=== PATIENT | male | born 1970 | race Hispanic/Latino ===

== ENCOUNTER 2016-11-10 16:01 | Emergency (ER) | payer OTHER ==
--- NOTE | 2016-11-10 16:29 | ED PDOC ---
HPI: Neurologic - General Time Seen by Provider: 11/10/16 16:21 Chief Complaint (Nursing): Weakness/Neurological Deficit Chief Complaint (Provider): Left sided facial weakness & droop Source: patient Exam Limitations: no limitations - History of Present Illness Allergies/Adverse Reactions: Allergies No Known Allergies Allergy (Verified 11/10/16 16:21) Home Medications: Ambulatory Orders Acyclovir 400 mg PO 5XD #34 tablet 11/10/16 Mineral Oil/White Petrolatum [Lacri-Lube] 3.5 gm OS HS #1 tube 11/10/16 Prednisone [Deltasone] 40 mg PO BID #26 tablet 11/10/16 Additional Complaint(s): Cam Peterson is a 46 y/o female presenting to the ER on 11/10/2016 with complaints of left sided facial weakness associated with a facial droop that started today. Patient notes his symptoms include being unable to fully close his left eye. He additionally reports pain localized to the back of his head on the left side that radiates to the area behind his left ear, which originated two days ago. He states the pain has improved but is still present, prompting him to seek medical evaluation. He also states an altered sensation in his taste. Past Medical History Reviewed: Historical Data, Nursing Documentation, Vital Signs - Medical History PMH: HTN - Surgical History Surgical History: No Surg Hx - Family History Family History: States: Unknown Family Hx - Social History Current smoker - smoking cessation education provided: No Alcohol: None Drugs: Denies - Home Medications Home Medications: Ambulatory Orders Medication Instructions Recorded Acyclovir 400 mg PO 5XD #34 tablet 11/10/16 Mineral Oil/White Petrolatum 3.5 gm OS HS #1 tube 11/10/16 [Lacri-Lube] Prednisone [Deltasone] 40 mg PO BID #26 tablet 11/10/16 - Allergies Allergies/Adverse Reactions: Allergies Allergy/AdvReac Type Severity Reaction Status Date / Time No Known Allergies Allergy Verified 11/10/16 16:21 Review of Systems ROS Statement: Except As Marked, All Systems Reviewed And Found Negative Neurological: Positive for: Weakness ((+) left side ), Headache, Other ((+) altered sensation in taste ; (+) facial droop ) Physical Exam - Reviewed Nursing Documentation Reviewed: Yes Vital Signs Reviewed: Yes - Physical Exam Appears: Positive for: Non-toxic, No Acute Distress Head Exam: Positive for: ATRAUMATIC, NORMOCEPHALIC Skin: Negative for: Rash Eye Exam: Positive for: Normal appearance, EOMI, PERRL ENT: Positive for: TM Is/Are (unable to visualize TMs bilat, but ear canals are normal otherwise ). Negative for: Pharyngeal Erythema, Tonsillar Exudate, Tonsillar Swelling Neck: Positive for: Normal, Painless ROM, Supple Cardiovascular/Chest: Positive for: Regular Rate, Rhythm. Negative for: Murmur Respiratory: Positive for: Normal Breath Sounds. Negative for: Wheezing, Respiratory Distress Extremity: Negative for: Swelling Neurologic/Psych: Positive for: Alert, operations and intelligence assistant II-XII (intact except as stated), Oriented, Motor/Sensory Deficits (pt reports subjectively decreased sensation to the left side of his face, otherwise negative ), Gait (steady ), Facial Droop (left sided facial droop that involves his forehead. Pt is also unable to close his left eye fully ), Other (no pronator drift ) Medical Decision Making Medical Decision Making: presentation and exam consistent with Panchal Palsy. paralysis involves forehead as well and classic sx of pain around mastoid and altered taste present as well. no vesicles in or around the otic canal. I disc w the pt my impression, plan for rx including importance of wearing eye patch at night, follow up and rtr. Documented by Penny Rodriguez, acting as a scribe for Nahid Bueno MD. All medical record entries made by the Scribe were at my direction and personally dictated by me. I have reviewed the chart and agree that the record accurately reflects my personal performance of the history, physical exam, medical decision making, and the department course for this patient. I have also personally directed, reviewed, and agree with the discharge instructions and disposition. Disposition - Clinical Impression Clinical Impression: Panchal palsy - Disposition Disposition: Routine/Home Disposition Time: 16:41 Condition: GOOD Additional Instructions: Please follow up with your doctor this week. Use lacri-lube throughout the day as needed to keep the eye moist. Use it every night before sleep and apply an eye patch to avoid scratching your cornea while you sleep. Return to the ER for any worsening symptoms or for any other concerns. Prescriptions: Acyclovir 400 mg PO 5XD #34 tablet Mineral Oil/White Petrolatum [Lacri-Lube] 3.5 gm OS HS #1 tube Prednisone [Deltasone] 40 mg PO BID #26 tablet Instructions: Panchal Palsy (ED)
[2016-11-10 16:57] VITALS: PULSE 77; RESP 18; TEMP 98; O2SAT 96
[2016-11-10 17:04] VITALS: BP 135/89
== END 2016-11-10 17:05 | disposition home or self-care (01) ==
LOC: H.ER 16:01
DX: G51.0 Bell's palsy (principal); I10 Essential (primary) hypertension

== ENCOUNTER 2016-11-23 09:44 | Emergency (ER) | payer OTHER ==
[2016-11-23 09:47] VITALS: BMI 39.9
[2016-11-23 09:48] VITALS: BP 155/94; PULSE 70; RESP 16; TEMP 98.9; O2SAT 98
[2016-11-23] MEDS ORDERED: Sodium Chloride 0.9% 1,000 ML IV STA ×3 (10:27→13:44)
--- NOTE | 2016-11-23 10:33 | ED PDOC ---
HPI: Headache Time Seen by Provider: 11/23/16 10:12 Chief Complaint (Nursing): Headache Chief Complaint (Provider): headache, dizziness History Per: Patient Additional Complaint(s): 46-year-old male with recent diagnosis of Panchal's palsy presents to emergency department with left-sided headache and dizziness 3 days. Patient states he was diagnosed 2 weeks ago with Panchal's palsy and was started on course of prednisone and valacyclovir. He completed course of medication and initially symptoms did improve but as of 3 days ago he has had persistent left-sided headache and dizziness. Patient has been taking Tylenol which has not helped the pain. Patient also took oxycodone tab and vicoprofen given to him from his mother but these meds did not help either. Patient also complains of associated left-sided neck pain. He denies injury or trauma. At present he rates headache as a 9 out of 10. Patient states this is not the worst headache of his life. Patient still has residual paralysis on right side of face from recent diagnosis of Panchal's palsy. Patient was seen this past Friday by Dr. Sung, neurologist who ordered outpatient MRI of the brain as well as labs but patient has not had these tests done as of yet. Past Medical History Reviewed: Historical Data, Nursing Documentation, Vital Signs Vital Signs: Last Vital Signs Temp 98.9 F 11/23/16 09:47 Pulse 70 11/23/16 09:47 Resp 16 11/23/16 09:47 BP 155/94 H 11/23/16 09:47 Pulse Ox 98 11/23/16 09:47 - Medical History PMH: HTN - Surgical History Surgical History: No Surg Hx - Family History Family History: States: No Known Family Hx - Living Arrangements Living Arrangements: With Family - Social History Current smoker - smoking cessation education provided: No Alcohol: None Drugs: Denies - Home Medications Home Medications: Ambulatory Orders Medication Instructions Recorded Acyclovir 400 mg PO 5XD #34 tablet 11/10/16 Mineral Oil/White Petrolatum 3.5 gm OS HS #1 tube 11/10/16 [Lacri-Lube] Prednisone [Deltasone] 40 mg PO BID #26 tablet 11/10/16 Cyclobenzaprine [Cyclobenzaprine 10 mg PO TID PRN #15 tab 11/23/16 HCl] Naproxen [Naprosyn] 500 mg PO BID #15 tab 11/23/16 Ondansetron [Zofran Odt] 4 mg PO ASDIR PRN #10 odt 11/23/16 oxyCODONE/Acetaminophen [Percocet 1 ea PO Q6H PRN #6 tab 11/23/16 5/325 mg Tab] - Allergies Allergies/Adverse Reactions: Allergies Allergy/AdvReac Type Severity Reaction Status Date / Time No Known Allergies Allergy Verified 11/23/16 09:55 Review of Systems ROS Statement: Except As Marked, All Systems Reviewed And Found Negative Constitutional: Negative for: Fever, Chills Cardiovascular: Negative for: Chest Pain, Palpitations Respiratory: Negative for: Cough Gastrointestinal: Positive for: Nausea. Negative for: Vomiting Musculoskeletal: Positive for: Neck Pain Neurological: Positive for: Headache, Dizziness. Negative for: Weakness Physical Exam - Reviewed Nursing Documentation Reviewed: Yes Vital Signs Reviewed: Yes - Physical Exam Appears: Positive for: Well, Non-toxic, No Acute Distress Head Exam: Positive for: ATRAUMATIC, NORMAL INSPECTION Skin: Positive for: Rash Cardiovascular/Chest: Positive for: Regular Rate, Rhythm Respiratory: Positive for: Normal Breath Sounds. Negative for: Wheezing, Respiratory Distress Back: Negative for: Vertebral Tenderness Extremity: Positive for: Normal ROM. Negative for: Pedal Edema Neurologic/Psych: Positive for: Alert, Oriented, Facial Droop (right sided, recently diagnosed with bells palsy) - Laboratory Results Result Diagrams: 11/23/16 10:48 11/23/16 12:00 - ECG Interpretation Of ECG: NSR 64 bpm, no acute finding. Reviewed by PA and ED attending. O2 Sat by Pulse Oximetry: 98 Pulse Ox Interpretation: Normal - Other Rad CT head X-Ray: Read By Radiologist X-Ray Interpretation: no acute finding Medical Decision Making Medical Decision Makin46 year old with headache and dizziness. Plan: Patient presents with rx for labs from neurologist, labs were ordered as per list. CT head IVF IV zofran PO tramadol K is hemolyzed, 5.7. Repeat was ordered. Headache not relieved by tramadol, 4 mg IV morphine ordered. Repeat K is normal at 4.8 Patient states headache is better after morphine but is still 6/10. He states he feels the pain more so in his neck, additional 4 mg IV morphine given along with 30 mg IV toradol and 10 mg PO flexeril. Patient states pain is better after these meds were given. I spoke with patient's neurologist, Dr. Sung, who is aware of diagnostic testing results. He states to have patient schedule outpatient MRI and follow up this week in his office. Patient was discharged with rx percocet, naprosyn and flexeril. He was advised to take meds as directed as needed for pain and to follow up next week with Dr. Sung. Patient is aware he can RTED at any time if acutely worse. Disposition - Clinical Impression Clinical Impression: Headache, Neck pain - Patient ED Disposition Is Patient to be Admitted: No Counseled Patient/Family Regarding: Studies Performed, Diagnosis, Need For Followup, Rx Given - Disposition Referrals: Peewee Sung MD [Medical Doctor] - Disposition: Routine/Home Disposition Time: 13:52 Condition: STABLE Additional Instructions: Take rx meds as directed. Follow up this coming week with Dr. Sung. Return any time if acutely worse. Prescriptions: Cyclobenzaprine [Cyclobenzaprine HCl] 10 mg PO TID PRN #15 tab PRN Reason: Muscle Pain Naproxen [Naprosyn] 500 mg PO BID #15 tab Ondansetron [Zofran Odt] 4 mg PO ASDIR PRN #10 odt PRN Reason: Nausea/Vomiting oxyCODONE/Acetaminophen [Percocet 5/325 mg Tab] 1 ea PO Q6H PRN #6 tab PRN Reason: Pain, Severe (8-10) Instructions: Cervical Sprain (ED), General Headache (ED) Results - Lab Results Lab Results: 11/23/16 11/23/16 11/23/16 12:00 10:48 10:48 WBC 7.7 RBC 5.38 Hgb 15.0 Hct 45.1 MCV 83.8 MCH 27.8 MCHC 33.2 RDW 13.5 Plt Count 238 MPV 7.4 Neut % (Auto) 50.5 Lymph % (Auto) 35.4 Catron % (Auto) 11.8 H Eos % (Auto) 1.8 Baso % (Auto) 0.5 Neut # 3.9 Lymph # 2.7 Catron # 0.9 H Eos # 0.1 Baso # 0.0 ESR 3 Sodium 135 Potassium 4.8 5.7 H Chloride 104 Carbon Dioxide 22 Anion Gap 15 BUN 16 Creatinine 0.9 Est GFR ( Amer) > 60 Est GFR (Non-Af Amer) > 60 Random Glucose 109 Calcium 8.4 Total Bilirubin 1.2 AST 63 H ALT 37 Alkaline Phosphatase 89 Total Protein 7.0 Albumin 4.0 Globulin 3.1 Albumin/Globulin Ratio 1.3 Vitamin B12 843
[2016-11-23 11:08] LABS: BASO % 0.5 % (0.0-2.0); EOS # 0.1 K/uL (0.0-0.7); EOS % 1.8 % (0.0-4.0); LYMPH # 2.7 K/uL (1.0-4.3); LYMPH % 35.4 % (20.0-40.0); MEAN CELL VOLUME 83.8 fl (80.0-94.0); MEAN CORPUSCULAR HEMOGLOBIN 27.8 pg (27.0-31.0); MEAN CORPUSCULAR HGB CONC 33.2 g/dL (33.0-37.0); MEAN PLATELET VOLUME 7.4 fl (7.2-11.7); MONO # 0.9 K/uL (0.0-0.8); MONO % 11.8 % (0.0-10.0); NEUT # 3.9 K/uL (1.8-7.0); NEUT % 50.5 % (50.0-75.0); NRBC % 0.1 % (0.0-0.0); RBC 5.38 Mil/uL (4.40-5.90); RED CELL DISTRIBUTION WIDTH 13.5 % (11.5-14.5); WHITE BLOOD COUNT 7.7 K/uL (4.8-10.8)
[2016-11-23 11:33] LABS: ALB/GLOB RATIO 1.3 (1.0-2.1); ALT/SGPT 37 U/L (21-72); AST/SGOT 63 U/L (17-59); BLOOD UREA NITROGEN 16 mg/dl (9-20); CALCIUM 8.4 mg/dL (8.4-10.2); GFR AFRICAN-AMERICAN > 60; GFR NON-AFRICAN AMERICAN > 60
[2016-11-23] MEDS: Morphine 4 MG/ML VIAL IVP STA ×2 (12:10→13:27)
--- NOTE | 2016-11-23 12:27 | CT ---
PROCEDURE: CT HEAD WITHOUT CONTRAST. HISTORY: headache and dizziness for 3 days COMPARISON: None available. TECHNIQUE: Axial computed tomography images were obtained through the head/brain without intravenous contrast. Radiation dose: Total exam DLP = 123.62 mGy-cm. This CT exam was performed using one or more of the following dose reduction techniques: Automated exposure control, adjustment of the mA and/or kV according to patient size, and/or use of iterative reconstruction technique. FINDINGS: HEMORRHAGE: No intracranial hemorrhage. BRAIN: No mass effect or edema. No atrophy or chronic microvascular ischemic changes. VENTRICLES: Unremarkable. No hydrocephalus. CALVARIUM: Unremarkable. PARANASAL SINUSES: Frontal sinuses are hypoplastic. Remaining visualized paranasal sinuses well-developed and currently well-aerated. InUnremarkable as visualized. No significant inflammatory changes. MASTOID AIR CELLS: Unremarkable as visualized. No inflammatory changes. OTHER FINDINGS: None. IMPRESSION: No acute intracranial hemorrhage.
--- NOTE | 2016-11-24 10:46 | CARD ---
APPROVED REPORT EKG Measurement Heart [id number] <Conclusion> Normal sinus rhythm Normal ECG
[2016-11-26 13:06] LABS: 23 KD (IGG) BAND Nonreactive
== END 2016-11-23 15:00 | disposition home or self-care (01) ==
LOC: H.ER 09:44
DX: R51 Headache (principal); I10 Essential (primary) hypertension; M54.2 Cervicalgia

== ENCOUNTER 2017-06-06 18:41 | Emergency (ER) | payer OTHER ==
[2017-06-06 18:41] VITALS: BMI 39.9
[2017-06-06 18:50] VITALS: BP 150/94; PULSE 90; RESP 16; TEMP 98.3; O2SAT 100
--- NOTE | 2017-06-06 20:18 | ED PDOC ---
HPI: Back Time Seen by Provider: 06/06/17 18:52 Chief Complaint (Nursing): Back Pain Chief Complaint (Provider): Back Pain History Per: Patient History/Exam Limitations: no limitations Onset/Duration Of Symptoms: Days Additional Complaint(s): 46 year old male presents to the emergency department with a complaint of a lower back pain that worsens with movement especially when he tries to sit up after laying down. Denies trauma, urinary symptoms, bladder or bowel incontinence, fever, paresthesias, to weakness. PMD: Dr. David Teixeira MD Past Medical History Reviewed: Historical Data, Nursing Documentation, Vital Signs Vital Signs: Last Vital Signs Temp 98.3 F 06/06/17 18:48 Pulse 90 06/06/17 18:48 Resp 16 06/06/17 18:48 BP 150/94 H 06/06/17 18:48 Pulse Ox 100 06/06/17 18:48 - Medical History PMH: HTN - Family History Family History: States: Unknown Family Hx - Home Medications Home Medications: Ambulatory Orders Medication Instructions Recorded Acyclovir 400 mg PO 5XD #34 tablet 11/10/16 Mineral Oil/White Petrolatum 3.5 gm OS HS #1 tube 11/10/16 [Lacri-Lube] Prednisone [Deltasone] 40 mg PO BID #26 tablet 11/10/16 Cyclobenzaprine [Cyclobenzaprine 10 mg PO TID PRN #15 tab 11/23/16 HCl] Naproxen [Naprosyn] 500 mg PO BID #15 tab 11/23/16 Ondansetron [Zofran Odt] 4 mg PO ASDIR PRN #10 odt 11/23/16 oxyCODONE/Acetaminophen [Percocet 1 ea PO Q6H PRN #6 tab 11/23/16 5/325 mg Tab] Cyclobenzaprine [Cyclobenzaprine 10 mg PO TID PRN #15 tab 06/06/17 HCl] Meloxicam [Mobic] 15 mg PO DAILY #30 tab 06/06/17 - Allergies Allergies/Adverse Reactions: Allergies Allergy/AdvReac Type Severity Reaction Status Date / Time No Known Allergies Allergy Verified 11/23/16 09:55 Review of Systems ROS Statement: Except As Marked, All Systems Reviewed And Found Negative (As per HPI, otherwise negative) Constitutional: Negative for: Fever, Other (Trauma) Genitourinary Male: Negative for: Dysuria, Frequency, Incontinence (bladder or bowel), Hematuria Musculoskeletal: Positive for: Back Pain Neurological: Negative for: Weakness (paresthesias) Physical Exam - Reviewed Nursing Documentation Reviewed: Yes Vital Signs Reviewed: Yes - Physical Exam Appears: Positive for: Non-toxic, In Acute Distress (Mild painful distress) Head Exam: Positive for: ATRAUMATIC, NORMAL INSPECTION, NORMOCEPHALIC Skin: Positive for: Normal Color, Warm, Dry Neck: Positive for: Normal, Supple Cardiovascular/Chest: Positive for: Regular Rate, Rhythm. Negative for: Murmur Respiratory: Positive for: Normal Breath Sounds. Negative for: Accessory Muscle Use, Respiratory Distress Gastrointestinal/Abdominal: Positive for: Normal Exam, Soft. Negative for: Tenderness, Mass Back: Positive for: Other (Right paralumbar tenderness with spasm ). Negative for: Normal Inspection, L CVA Tenderness, R CVA Tenderness, Vertebral Tenderness Extremity: Positive for: Normal ROM, Pedal Edema. Negative for: Tenderness, Deformity, Swelling Neurologic/Psych: Positive for: Alert, device engineer II-XII, Oriented (x3). Negative for : Motor/Sensory Deficits - ECG O2 Sat by Pulse Oximetry: 100 (RA) Pulse Ox Interpretation: Normal Medical Decision Making Medical Decision Making: Time: 1955 Initial impression: Back pain Initial plan: Cyclobenzaprine HCl 10 mg PO Toradol 60 mg IM Reevaluation Time: 2029 Diagnosis of musculoskeletal back pain discussed with the patient in great detail. Patient states that he feels comfortable going home. On reevaluation the patient able to stand up and ambulate in the emergency room with a normal steady gait. Patient advised to follow up with primary care physician in 1-2 days without fail. Advised to take medication as prescribed - Rx for Cyclobenzaprine HCl 10 mg and Mobic 15 mg. Return to the emergency room at any time for any new or worsening symptoms.Patient states he fully agrees with and understands discharge instructions. States that he agrees with the plan and disposition. Verbalized and repeated discharge instructions and plan. I have given the patient opportunity to ask any additional questions. Scribe Attestation: Documented by Marzena Patel, acting as a scribe for Daphne Mckenna PA-C Provider Scribe Attestation: All medical record entries made by the Scribe were at my direction and personally dictated by me. I have reviewed the chart and agree that the record accurately reflects my personal performance of the history, physical exam, medical decision making, and the department course for this patient. I have also personally directed, reviewed, and agree with the discharge instructions and disposition. Disposition - Clinical Impression Clinical Impression: Low back pain - Patient ED Disposition Is Patient to be Admitted: No Counseled Patient/Family Regarding: Diagnosis, Need For Followup, Rx Given - Disposition Disposition: Routine/Home Disposition Time: 20:30 Condition: STABLE Additional Instructions: Thank you for letting us take care of you today. You were treated for back pain. The emergency medical care you received today was directed at your acute symptoms. If you were prescribed any medication, please fill it and take as directed. It may take several days for your symptoms to resolve. Return to the Emergency Department if your symptoms worsen, do not improve, or if you have any other problems. Please contact your doctor in 2 days for re-evaluation and follow up. Bring any paperwork you were given at discharge with you along with any medications you are taking to your follow up visit. Our treatment cannot replace ongoing medical care by a primary care provider (PCP) outside of the emergency department. Thank you for allowing the [facility] team to be part of your care today. Prescriptions: Cyclobenzaprine [Cyclobenzaprine HCl] 10 mg PO TID PRN #15 tab PRN Reason: Muscle Spasm Meloxicam [Mobic] 15 mg PO DAILY #30 tab Instructions: Back Pain (ED) Forms: [employer] (Faroese), [facility] ED School/Work Excuse Print Language: CROATIAN
== END 2017-06-06 20:45 | disposition home or self-care (01) ==
LOC: H.ER 18:41
DX: M54.9 Dorsalgia, unspecified (principal); I10 Essential (primary) hypertension
CPT/HCPCS: 96372; 99281; J1885

== ENCOUNTER 2018-01-10 20:12 | Emergency (ER) | payer OTHER ==
[2018-01-10 20:25] VITALS: BMI 47.0
[2018-01-10 20:28] VITALS: TEMP 98.1
[2018-01-10] MEDS ORDERED: Sodium Chloride 0.9% 1,000 ML IV STA (20:45)
--- NOTE | 2018-01-10 21:07 | ED PDOC ---
HPI: Abdomen Time Seen by Provider: 01/10/18 20:33 Chief Complaint (Nursing): Abdominal Pain Chief Complaint (Provider): Abdominal Pain History Per: Patient History/Exam Limitations: no limitations Onset/Duration Of Symptoms: Mins (30), Sudden Onset Current Symptoms Are (Timing): Still Present Additional Complaint(s): 47 y/o male with a PMHx of HTN presents to the ED complaining of right sided flank pain, onset 30 minutes ago. Patient states pain was sharp and sudden and now radiates from the right flank down to the groin. Patient reports pain is associated with nausea and sweats at onset. Patient states he was feeling fine all day and not doing any kind of exertional activity prior to onset. Patient denies abdominal at onset. At this time, patient denies vomiting, urinary symptoms, hematuria, fever, syncope, dizziness and history of kidney stones. PMD: Dr. Teixeira Past Medical History Reviewed: Historical Data, Nursing Documentation, Vital Signs Vital Signs: Last Vital Signs Temp 98.1 F 01/10/18 20:26 Pulse 100 H 01/10/18 20:26 Resp 18 01/10/18 20:26 BP 136/84 01/10/18 20:26 Pulse Ox 100 01/10/18 22:05 - Medical History PMH: HTN - Surgical History Surgical History: No Surg Hx - Family History Family History: States: Unknown Family Hx - Home Medications Home Medications: Ambulatory Orders Medication Instructions Recorded Acyclovir 400 mg PO 5XD #34 tablet 11/10/16 Mineral Oil/White Petrolatum 3.5 gm OS HS #1 tube 11/10/16 [Lacri-Lube] Prednisone [Deltasone] 40 mg PO BID #26 tablet 11/10/16 Cyclobenzaprine [Cyclobenzaprine 10 mg PO TID PRN #15 tab 11/23/16 HCl] Ondansetron [Zofran Odt] 4 mg PO ASDIR PRN #10 odt 11/23/16 oxyCODONE/Acetaminophen [Percocet 1 ea PO Q6H PRN #6 tab 11/23/16 5/325 mg Tab] Meloxicam [Mobic] 15 mg PO DAILY #30 tab 06/06/17 Cyclobenzaprine [Cyclobenzaprine 10 mg PO TID PRN #15 tab 01/10/18 HCl] Naproxen [Naprosyn] 500 mg PO BID #15 tab 01/10/18 - Allergies Allergies/Adverse Reactions: Allergies Allergy/AdvReac Type Severity Reaction Status Date / Time No Known Allergies Allergy Verified 11/23/16 09:55 Review of Systems ROS Statement: Except As Marked, All Systems Reviewed And Found Negative Constitutional: Positive for: Sweats. Negative for: Fever Gastrointestinal: Positive for: Nausea, Abdominal Pain. Negative for: Vomiting Genitourinary Male: Negative for: Dysuria, Frequency, Hematuria Musculoskeletal: Positive for: Back Pain Neurological: Negative for: Dizziness, Other (Syncope) Physical Exam - Reviewed Nursing Documentation Reviewed: Yes Vital Signs Reviewed: Yes - Physical Exam Appears: Positive for: No Acute Distress, Uncomfortable Head Exam: Positive for: ATRAUMATIC, NORMOCEPHALIC Skin: Positive for: Normal Color, Warm, Dry Eye Exam: Positive for: Normal appearance, EOMI, PERRL Neck: Positive for: Normal, Painless ROM Cardiovascular/Chest: Positive for: Regular Rate, Rhythm. Negative for: Murmur Respiratory: Positive for: Normal Breath Sounds. Negative for: Respiratory Distress Gastrointestinal/Abdominal: Positive for: Normal Exam, Soft, Tenderness ( Tenderness to the suprapubic area). Negative for: Hernia Back: Positive for: Normal Inspection. Negative for: L CVA Tenderness, R CVA Tenderness Extremity: Positive for: Normal ROM. Negative for: Deformity Neurologic/Psych: Positive for: Alert, Oriented - Laboratory Results Result Diagrams: 01/10/18 21:10 01/10/18 21:10 - ECG O2 Sat by Pulse Oximetry: 100 (RA) Pulse Ox Interpretation: Normal - Progress Re-evaluation Time: 22:56 Condition: Re-examined, Improved Medical Decision Making Medical Decision Making: Time: 2055 Impression: right flank pain Differentials include but not limited to renal colic, nephrolithiasis, UTI and musculoskeletal pain Rule out acute appendicitis Plan: -- CT Abd/Pelvis w/o contrast -- BMP -- ED Urine Dipstick -- CBC with differentials -- Sodium Chloride IV 1000 mls/hr -- Toradol 30 mg IVP -- Zofran Inj 4 mg IV Time: 2154 CT ABD RESULTS FINDINGS: Lung bases: Subpleural reticular opacities within the dependent aspect of the lower lobes may represent subsegmental atelectasis or scarring. ABDOMEN: Liver: There is a diffuse decrease in hepatic parenchymal density, consistent with fatty infiltration. Focal fatty sparing near the gallbladder fossa. Gallbladder and bile ducts: The gallbladder is normal. No calcified stones. No ductal dilation. Pancreas: The pancreas is normal. No ductal dilation. Spleen: The spleen is normal. Adrenals: Left adrenal nodule measuring 2.2 cm x 1.7 cm x 2.0 cm. This is of -8 HU attenuation and is consistent with a lipid rich adrenal adenoma. Normal appearance of the right adrenal gland. Kidneys and ureters: The kidneys are normal. The ureters are normal. No obstructing stones. No hydronephrosis. Stomach and bowel: Normal. No obstruction. No mucosal thickening. PELVIS: Appendix: A normal appendix is identified. Bladder: The bladder is decompressed but otherwise normal. No stones. Reproductive: The prostate gland and seminal vesicles are normal. ABDOMEN and PELVIS: Intraperitoneal space: Normal. No free air. No significant fluid collection. Bones/joints: No acute fracture. No dislocation. Soft tissues: Tiny fat containing umbilical hernia. Mild spondylosis of the imaged thoracic and lumbar spine. No acute osseous abnormality. Vasculature: Normal. No abdominal aortic aneurysm. Lymph nodes: Normal. No enlarged lymph nodes. IMPRESSION: 1. No urolithiasis. 2. Hepatic steatosis. 3. Benign left adrenal adenoma. 4. Tiny fat containing umbilical hernia. Thank you for allowing us to participate in the care of your patient. Dictated and Authenticated by: Reji Walters DO 01/10/2018 9:55 PM Eastern Time ([place] & [place]) Scribe Attestation: Documented by Allison Turner acting as a scribe for Dr. Nhung Ramires. Provider Scribe Attestation: All medical record entries made by the Scribe were at my direction and personally dictated by me. I have reviewed the chart and agree that the record accurately reflects my personal performance of the history, physical exam, medical decision making, and the department course for this patient. I have also personally directed, reviewed, and agree with the discharge instructions and disposition. Disposition - Clinical Impression Clinical Impression: Flank pain - Patient ED Disposition Is Patient to be Admitted: No Doctor Will See Patient In The: Office Counseled Patient/Family Regarding: Studies Performed, Diagnosis, Need For Followup - Disposition Referrals: David Teixeira MD [Family Provider] - Disposition: Routine/Home Disposition Time: 22:57 Condition: GOOD Additional Instructions: ALFONZO POE, thank you for letting us take care of you today. Your provider was Scooter Cervantes MD and you were treated for RT SIDE ABD PAIN. The emergency medical care you received today was directed at your acute symptoms. If you were prescribed any medication, please fill it and take as directed. It may take several days for your symptoms to resolve. Return to the Emergency Department if your symptoms worsen, do not improve, or if you have any other problems. Please contact your doctor or call one of the physicians/clinics you have been referred to that are listed on the Patient Visit Information form that is included in your discharge packet. Bring any paperwork you were given at discharge with you along with any medications you are taking to your follow up visit. Our treatment cannot replace ongoing medical care by a primary care provider outside of the emergency department. Thank you for allowing the [facility] team to be part of your care today. If you had an X-Ray or CT scan: A Radiologist will review the ED reading if any change in treatment is needed we will contact you. If you had a blood, urine, or wound culture: It will take several days for the results, if any change in treatment is needed we will contact you. If you had an STI test: It will take 48 hours for the results. Please call after 1 week if you have not heard back. Prescriptions: Cyclobenzaprine [Cyclobenzaprine HCl] 10 mg PO TID PRN #15 tab PRN Reason: Muscle Spasm Naproxen [Naprosyn] 500 mg PO BID #15 tab Instructions: Flank Pain (DC)
[2018-01-10 21:14] LABS: BASO % 0.4 % (0.0-2.0); EOS # 0.1 K/uL (0.0-0.7); EOS % 0.6 % (0.0-4.0); HEMOGLOBIN 15.7 g/dL (12.0-18.0); LYMPH # 2.1 K/uL (1.0-4.3); LYMPH % 17.7 % (20.0-40.0); MEAN CELL VOLUME 84.6 fl (80.0-94.0); MEAN CORPUSCULAR HEMOGLOBIN 27.9 pg (27.0-31.0); MEAN PLATELET VOLUME 8.4 fl (7.2-11.7); MONO # 1.1 K/uL (0.0-0.8); MONO % 9.4 % (0.0-10.0); NEUT # 8.4 K/uL (1.8-7.0); NEUT % 71.9 % (50.0-75.0); NRBC % 0.1 % (0.0-0.0); RBC 5.61 Mil/uL (4.40-5.90); RED CELL DISTRIBUTION WIDTH 14.2 % (11.5-14.5); WHITE BLOOD COUNT 11.6 K/uL (4.8-10.8)
[2018-01-10 21:22] LABS: BLOOD UREA NITROGEN 23 mg/dl (9-20); CALCIUM 9.4 mg/dL (8.4-10.2); GFR NON-AFRICAN AMERICAN > 60
[2018-01-10 23:35] VITALS: BP 134/77; PULSE 89; RESP 16; O2SAT 98
--- NOTE | 2018-01-11 13:29 | CT ---
Date of service: 01/10/2018 PROCEDURE: CT Abdomen and Pelvis without intravenous contrast HISTORY: Right flank pain right groin COMPARISON: None. TECHNIQUE: CT scan of the abdomen and pelvis was performed without administration of intravenous contrast. Oral contrast was not administered. Coronal and sagittal reformatted images were obtained. . This CT exam was performed using one or more of the following dose reduction techniques: Automated exposure control, adjustment of the mA and/or kV according to patient size, and/or use of iterative reconstruction technique. Radiation dose: Total exam DLP = 963.7 mGy-cm FINDINGS: LOWER THORAX: Heart size within range of normal. No significant pericardial effusion. Tiny hiatal hernia. Lung bases are clear without focal consolidation or effusion. No evidence of basilar pneumothorax. LIVER: Liver is enlarged measuring over 22 cm in CC dimension. Moderate -significant fatty hepatic infiltration. GALLBLADDER AND BILE DUCTS: No calcified gallstones. No biliary dilatation PANCREAS: Normal in size. No ductal dilatation. SPLEEN: Normal in size. ADRENALS: 17 mm hypodense left adrenal nodule consistent with adenoma KIDNEYS AND URETERS: Normal in size without nephrolithiasis. No hydronephrosis. VASCULATURE: No aortic aneurysm. BOWEL: The small bowel loops are normal in caliber. The colon is normal in size. No bowel dilatation or wall thickening. No bowel obstruction. APPENDIX: Appendix unremarkable best seen on pulse sequence image number [id number]. PERITONEUM: No free fluid. No free air. Small fat containing umbilical hernia. . Small fat containing bilateral inguinal hernias. LYMPH NODES: No enlarged lymph nodes. BLADDER: Urinary bladder is incompletely distended which in part accounts thick-walled appearance however muscular hypertrophy presumably contributes. REPRODUCTIVE: The uterus is normal in size BONES: Mild multilevel degenerative spondylosis of the lower thoracic and lumbar spine. No acute fractures. OTHER FINDINGS: None. IMPRESSION: Hepatomegaly with moderate to fairly significant fatty hepatic infiltration. Small left adrenal adenoma as above.
== END 2018-01-10 23:35 | disposition home or self-care (01) ==
LOC: H.ER 20:12
DX: R10.9 Unspecified abdominal pain (principal); I10 Essential (primary) hypertension
CPT/HCPCS: 74176; 80048; 85025; 96374; 99283; J1885; J2405; J7030

== ENCOUNTER 2018-03-22 16:10 | Inpatient (IN) | payer OTHER ==
[2018-03-22 16:10] VITALS: BMI 47.0
[2018-03-22] MEDS ORDERED: Iohexol 240 (50 ml) PO ONE (16:57)
[2018-03-22] MEDS ORDERED: Sodium Chloride 0.9% 1,000 ML IV STA (16:57)
[2018-03-22 17:19] LABS: BASO % 0.3 % (0.0-2.0); EOS % 0.1 % (0.0-4.0); HEMOGLOBIN 15.8 g/dL (12.0-18.0); LYMPH # 0.5 K/uL (1.0-4.3); LYMPH % 3.3 % (20.0-40.0); MEAN CELL VOLUME 84.4 fl (80.0-94.0); MEAN CORPUSCULAR HEMOGLOBIN 27.3 pg (27.0-31.0); MEAN CORPUSCULAR HGB CONC 32.3 g/dL (33.0-37.0); MEAN PLATELET VOLUME 8.3 fl (7.2-11.7); MONO # 1.1 K/uL (0.0-0.8); MONO % 6.7 % (0.0-10.0); NEUT # 14.5 K/uL (1.8-7.0); NEUT % 89.6 % (50.0-75.0); NRBC % 0.1 % (0.0-0.0); PLATELET COUNT 201 K/uL (130-400); RBC 5.79 Mil/uL (4.40-5.90); RED CELL DISTRIBUTION WIDTH 14.5 % (11.5-14.5); WHITE BLOOD COUNT 16.2 K/uL (4.8-10.8)
[2018-03-22 17:21] LABS: VENOUS BLOOD GAS BASE EXCESS 7.2 mmol/L (0.0-2.0); VENOUS BLOOD GAS PCO2 51 mmHg (40-60); VENOUS BLOOD GAS PO2 29 mm/Hg (30-55); VENOUS BLOOD PH 7.42 (7.32-7.43)
[2018-03-22 17:29] LABS: ALB/GLOB RATIO 1.3 (1.0-2.1); ALBUMIN 4.4 g/dL (3.5-5.0); ALT/SGPT 167 U/L (21-72); AST/SGOT 100 U/L (17-59); BLOOD UREA NITROGEN 17 mg/dl (9-20); CALCIUM 8.7 mg/dL (8.4-10.2); GFR NON-AFRICAN AMERICAN > 60
--- NOTE | 2018-03-22 17:41 | ED PDOC ---
HPI: General Adult Time Seen by Provider: 03/22/18 16:16 Chief Complaint (Nursing): Fever Chief Complaint (Provider): groin pain, dysuria, fever History Per: Patient History/Exam Limitations: no limitations Onset/Duration Of Symptoms: Days (1) Current Symptoms Are (Timing): Still Present Severity: Moderate Location Of Discomfort (Image): 1 - pain Additional Complaint(s): 47yo male c/o L groin pain with mild dysuria, associated with fever/chills ongoing since yesterday. Denies vomiting, diarrhea, hematuria or perineal pain. Denies skin lesions or boils or recent infections. Past Medical History Vital Signs: Last Vital Signs Temp 102.6 F H 03/22/18 17:33 Pulse 120 H 03/22/18 16:12 Resp 19 03/22/18 16:12 BP 141/97 H 03/22/18 16:12 Pulse Ox 96 03/22/18 16:12 - Medical History PMH: HTN - Surgical History Surgical History: No Surg Hx - Family History Family History: States: Unknown Family Hx - Home Medications Home Medications: Ambulatory Orders Medication Instructions Recorded Acyclovir 400 mg PO 5XD #34 tablet 11/10/16 Mineral Oil/White Petrolatum 3.5 gm OS HS #1 tube 11/10/16 [Lacri-Lube] Prednisone [Deltasone] 40 mg PO BID #26 tablet 11/10/16 Cyclobenzaprine [Cyclobenzaprine 10 mg PO TID PRN #15 tab 11/23/16 HCl] Ondansetron [Zofran Odt] 4 mg PO ASDIR PRN #10 odt 11/23/16 oxyCODONE/Acetaminophen [Percocet 1 ea PO Q6H PRN #6 tab 11/23/16 5/325 mg Tab] Meloxicam [Mobic] 15 mg PO DAILY #30 tab 06/06/17 Cyclobenzaprine [Cyclobenzaprine 10 mg PO TID PRN #15 tab 01/10/18 HCl] Naproxen [Naprosyn] 500 mg PO BID #15 tab 01/10/18 - Allergies Allergies/Adverse Reactions: Allergies Allergy/AdvReac Type Severity Reaction Status Date / Time No Known Allergies Allergy Verified 11/23/16 09:55 Physical Exam - Reviewed Nursing Documentation Reviewed: Yes Vital Signs Reviewed: Yes - Physical Exam Appears: Positive for: Well, Non-toxic, No Acute Distress Head Exam: Positive for: ATRAUMATIC, NORMAL INSPECTION, NORMOCEPHALIC Skin: Positive for: Normal Color, Warm, DRY Eye Exam: Positive for: EOMI, Normal appearance, PERRL ENT: Positive for: Normal ENT Inspection Neck: Positive for: Normal, Painless ROM Cardiovascular/Chest: Positive for: Regular Rate, Rhythm Respiratory: Positive for: CNT, Normal Breath Sounds Pulses-Radial (L): 3+/4+ Pulses-Radial (R): 3+/4+ Gastrointestinal/Abdominal: Positive for: Soft, Tenderness (L groin w erythema to lower abd and groin) Male Genital Exam: Negative for: testicular tenderness (R), testicular tenderness (L), urethral discharge Back: Positive for: Normal Inspection Extremity: Positive for: Normal ROM Neurologic/Psych: Positive for: Alert, Oriented. Negative for: Motor/Sensory Deficits - Laboratory Results Result Diagrams: 03/22/18 17:14 03/22/18 17:14 - ECG O2 Sat by Pulse Oximetry: 96 Medical Decision Making Medical Decision Making: workup for fever w abd pain and tenderness initiated labs, CT abd pelv w contrast, cultures labs reviewed reveal elev WBC and lactate 2.2 IVF bolus initiated tylenol ordered for fever endorsed Dr Cervantes pending CT and dispo Disposition - Clinical Impression Clinical Impression: Abdominal pain - Patient ED Disposition Is Patient to be Admitted: Transfer of Care - Disposition Disposition: Transfer of Care Disposition Time: 18:59 Condition: FAIR Forms: [employer] (Kyrgyz) Patient Signed Over To: Scooter Cervantes
[2018-03-22] MEDS ORDERED: Iohexol 300 100 ML IJ ONE (19:12)
[2018-03-22] MEDS ORDERED: Sodium Chloride 0.9% 50 ML IV ONE (19:12)
[2018-03-22 19:39] LABS: ACANTHOCYTES MODERATE; BANDS 4 % (0-2); LARGE PLATELETS PRESENT; LYMPHOCYTE 3 % (20-50); MONOCYTE 6 % (0-10); NEUTROPHIL 87 % (42-75); PLATELET ESTIMATE NORMAL (NORMAL); TOTAL CELLS COUNTED 100
[2018-03-22 19:41] LABS: HYPOCHROMIC SLIGHT
--- NOTE | 2018-03-22 20:05 | ED PDOC ---
- Laboratory Results Result Diagrams: 03/22/18 17:14 03/22/18 17:14 - ECG O2 Sat by Pulse Oximetry: 96 - CT Scan/US CT abd and pelv with PO and IV contrast Other Rad Studies (CT/US): Read By Radiologist, Radiology Report Reviewed (see MDM note) Medical Decision Making Medical Decision Makin:00 Patient is being signed out to me by Luca Hernandez III, DO pending CT abdomen and reevaluation. 20:46 CT abdomen and pelvis with PO and IV contrast read and reviewed by radiologist FINDINGS: LUNG BASES: The lung bases appear clear. No pleural effusions are seen. LIVER: There is diffuse hepatic hypoattenuation compatible with fatty infiltration. The liver is enlarged, 20 cm. GALLBLADDER AND BILE DUCTS: The gallbladder appears within normal limits. No radioopaque gallstones are seen. No biliary ductal dilatation is evident. PANCREAS: Unremarkable. SPLEEN: Unremarkable. ADRENAL GLANDS: There is a 1 cm left adrenal nodule demonstrating water attentuation consistent with an adenoma. KIDNEYS, URETERS, AND BLADDER: The kidneys appear within normal limits. There is no hydronephrosis or hydroureter. No urinary calculi are seen. STOMACH AND BOWEL: Unremarkable appearance of the stomach and bowel. No evidence of bowel obstruction. No evidence suggesting enteritis or colitis. APPENDIX: No evidence of acute appendicitis on CT examination. PERITONEUM: No free fluid. No free air. LYMPH NODES: No lymphadenopathy is evident. VASCULATURE: No evidence of abdominal aortic aneurysm. BONES: No aggressive appearing osseous lesion. No acute osseous pathology evident. MISCELLANEOUS: Small fat-containing umbilical hernia is noted. IMPRESSION: 1. 1 cm left adrenal adenoma. 2. Fatty liver. 3. Small fat-containing umbilical hernia is noted. 4. No acute pathology. [address] Aiken partner of Dr Teixeira who agrees with admission. Per bed admin Dr Aiken does not have admitting priviliges at [facility]. [facility] by [facility] staff [facility]. Scribe Attestation: Documented byEmily Montilla, acting as a scribe for Scooter Cervantes MD. Provider Scribe Attestation: All medical record entries made by the Scribe were at my direction and personally dictated by me. I have reviewed the chart and agree that the record accurately reflects my personal performance of the history, physical exam, medical decision making, and the department course for this patient. I have also personally directed, reviewed, and agree with the discharge instructions and disposition. Disposition Discussed With DrRaisa: Rohit Valdes Counseled Patient/Family Regarding: Studies Performed, Diagnosis, Need For Followup - Clinical Impression Clinical Impression: Abdominal pain, SIRS (systemic inflammatory response syndrome) - POA Present On Arrival: None - Disposition Disposition: Admitted as In-Patient Disposition Time: 22:00 Condition: FAIR
[2018-03-22 20:28] LABS: VENOUS BLOOD GAS BASE EXCESS 4.8 mmol/L (0.0-2.0); VENOUS BLOOD GAS PCO2 45 mmHg (40-60); VENOUS BLOOD GAS PO2 43 mm/Hg (30-55); VENOUS BLOOD PH 7.43 (7.32-7.43)
[2018-03-22] MEDS ORDERED: Piperacillin/Tazobact 3.375 GM in Sodium Chloride 0.9% 100 ML IVPB STA (20:53)
[2018-03-22] MEDS ORDERED: Piperacillin/Tazobact 3.375 gm Inj IVPB ONE (21:25)
[2018-03-22 21:26] LABS: URINE BILIRUBIN NEGATIVE (NEGATIVE); URINE BLOOD NEGATIVE (NEGATIVE); URINE CLARITY CLEAR (Clear); URINE COLOR YELLOW (YELLOW); URINE GLUCOSE (UA) 150 mg/dL (Normal); URINE LEUKOCYTE ESTERASE NEG Leu/uL (Negative); URINE PROTEIN NEGATIVE (NEGATIVE); URINE UROBILINOGEN 0.2-1.0 mg/dL (0.2-1.0)
--- NOTE | 2018-03-22 23:39 | CP.PCM.HP ---
<Lori Collins - Last Filed: 03/23/18 01:42> History of Present Illness - History of Present Illness History of Present Illness: This is 47 y/o male with PMH of HTN, pre-diabetes, morbid obesity and chronic back/knees pain comes to the ER c/o 1 day hx of subjective fever and burning/tightening sensation around left groin with occasional dysuria. As per patient he was at his usual state of health until night before when he started feeling little buring sensation around left groin, he woke up with same sensation and subjective fever and weakness which prompted patient to visit ER. Patient denies any skin color changes, any trauma, n/v/c/d, chest pain, dizziness, SOB, abdominal pain or blurred vision. PMD: Dr. Teixeira PMH: HTN, pre-diabetes, morbid obesity and chronic back/knees pain PSH: Denies Meds: Metoprolol 100mg daily Allg: NKDA SH: Denies any alcohol, smoking or illicit drug use FH: Father: healthy and alive, Mother: HTN/Lupus Patient is currently not sexually active ROS: As per HPI ER Course: 102.6 tm, 141/97, HR 120, Spo2 96% CBC: Significant for wbc 16.2 CMP: Sig for AST/ALT: 100/167 VBG: lactate 2.2--> 2.1 UA: Clean Ucx and Bcx CXR: f/u official read, no sign of any acute changes Abdo/Pelv CT: 1. 1 cm left adrenal adenoma. 2. Fatty liver. 3. Small fat-containing umbilical hernia is noted. 4. No acute pathology. Present on Admission - Present on Admission Any Indicators Present on Admission: No Past Patient History - Infectious Disease Hx of Infectious Diseases: None - Past Social History Smoking Status: Never Smoked - CARDIAC Hx Hypertension: Yes - NEUROLOGICAL Other/Comment: Dx w/ panchal's palsy 2 wks ago - PSYCHIATRIC Hx Substance Use: No - SURGICAL HISTORY Hx Surgeries: No - ANESTHESIA Hx Anesthesia: No Meds Allergies/Adverse Reactions: Allergies Allergy/AdvReac Type Severity Reaction Status Date / Time No Known Allergies Allergy Verified 11/23/16 09:55 Physical Exam - Constitutional Appears: No Acute Distress - Head Exam Head Exam: NORMAL INSPECTION - Eye Exam Eye Exam: EOMI, Normal appearance, PERRL Pupil Exam: NORMAL ACCOMODATION - ENT Exam ENT Exam: Mucous Membranes Moist - Neck Exam Neck exam: Positive for: Normal Inspection - Respiratory Exam Respiratory Exam: Clear to Auscultation Bilateral, NORMAL BREATHING PATTERN - Cardiovascular Exam Cardiovascular Exam: REGULAR RHYTHM, +S1, +S2 - GI/Abdominal Exam GI & Abdominal Exam: Normal Bowel Sounds, Soft. absent: Tenderness Additional comments: abdominal striae - Extremities Exam Extremities exam: Positive for: normal capillary refill, pedal edema (b/l LEs) Additional comments: left LE redness extending from above ankle to almost knee, aditi-medial side - Back Exam Back exam: absent: CVA tenderness (L), CVA tenderness (R) - Neurological Exam Neurological exam: Alert, CN II-XII Intact, Oriented x3 - Psychiatric Exam Psychiatric exam: Normal Affect - Skin Skin Exam: Dry, Intact, Normal Color, Warm Results - Vital Signs Recent Vital Signs: Last Vital Signs Temp 99.3 F 03/22/18 22:37 Pulse 88 03/22/18 22:37 Resp 19 03/22/18 16:12 BP 120/66 03/22/18 22:37 Pulse Ox 96 03/22/18 23:14 - Labs Result Diagrams: 03/22/18 17:14 03/22/18 17:14 Labs: Laboratory Results - last 24 hr 03/22/18 03/22/18 03/22/18 17:14 17:14 17:15 WBC 16.2 H RBC 5.79 Hgb 15.8 Hct 48.9 MCV 84.4 MCH 27.3 MCHC 32.3 L RDW 14.5 Plt Count 201 MPV 8.3 Neut % (Auto) 89.6 H Lymph % (Auto) 3.3 L [place] % (Auto) 6.7 Eos % (Auto) 0.1 Baso % (Auto) 0.3 Neut # (Auto) 14.5 H Lymph # (Auto) 0.5 L [place] # (Auto) 1.1 H Eos # (Auto) 0.0 Baso # (Auto) 0.0 Neutrophils % (Manual) 87 H Band Neutrophils % 4 H Lymphocytes % (Manual) 3 L Monocytes % (Manual) 6 Platelet Estimate Normal Large Platelets Present Hypochromasia (manual) Slight Acanthocytes (Spur) Moderate pO2 29 L VBG pH 7.42 VBG pCO2 51 VBG HCO3 29.4 VBG Total CO2 34.7 H VBG O2 Sat (Calc) 63.2 VBG Base Excess 7.2 H VBG Potassium 3.9 Glucose 204 H Lactate 2.2 H FiO2 21.0 Blood Gas Comments Lac=2.2 Crit Value Called To rayray Haile Crit Value Called By Crit Value Read Back Y Blood Gas Notified Time 1719 Sodium 139 136.0 Potassium 3.8 Chloride 98 97.0 L Carbon Dioxide 28 Anion Gap 17 BUN 17 Creatinine 1.1 Est GFR ( Amer) > 60 Est GFR (Non-Af Amer) > 60 POC Glucose (mg/dL) Random Glucose 192 H Calcium 8.7 Total Bilirubin 0.9 AST 100 H ALT 167 H D Alkaline Phosphatase 100 Total Protein 7.8 Albumin 4.4 Globulin 3.4 Albumin/Globulin Ratio 1.3 Venous Blood Potassium 3.9 Urine Color Urine Clarity Urine pH Ur Specific [place] Urine Protein Urine Glucose (UA) Urine Ketones Urine Blood Urine Nitrate Urine Bilirubin Urine Urobilinogen Ur Leukocyte Esterase Urine RBC (Auto) Urine Microscopic WBC Influenza Typ A,B (EIA) 03/22/18 03/22/18 03/22/18 19:59 20:21 21:03 WBC RBC Hgb Hct MCV MCH MCHC RDW Plt Count MPV Neut % (Auto) Lymph % (Auto) [place] % (Auto) Eos % (Auto) Baso % (Auto) Neut # (Auto) Lymph # (Auto) [place] # (Auto) Eos # (Auto) Baso # (Auto) Neutrophils % (Manual) Band Neutrophils % Lymphocytes % (Manual) Monocytes % (Manual) Platelet Estimate Large Platelets Hypochromasia (manual) Acanthocytes (Spur) pO2 43 VBG pH 7.43 VBG pCO2 45 VBG HCO3 28.2 VBG Total CO2 31.3 H VBG O2 Sat (Calc) 86.1 H VBG Base Excess 4.8 H VBG Potassium 3.7 Glucose 168 H Lactate 2.1 FiO2 21.0 Blood Gas Comments Lac=2.1 Crit Value Called To rayray Haile Crit Value Called By Crit Value Read Back Y Blood Gas Notified Time 2026 Sodium 133.0 Potassium Chloride 98.0 Carbon Dioxide Anion Gap BUN Creatinine Est GFR ( Amer) Est GFR (Non-Af Amer) POC Glucose (mg/dL) Random Glucose Calcium Total Bilirubin AST ALT Alkaline Phosphatase Total Protein Albumin Globulin Albumin/Globulin Ratio Venous Blood Potassium 3.7 Urine Color Yellow Urine Clarity Clear Urine pH 7.0 Ur Specific [place] 1.015 Urine Protein Negative Urine Glucose (UA) 150 Urine Ketones Negative Urine Blood Negative Urine Nitrate Negative Urine Bilirubin Negative Urine Urobilinogen 0.2-1.0 Ur Leukocyte Esterase Neg Urine RBC (Auto) 2 Urine Microscopic WBC < 1 Influenza Typ A,B (EIA) Negative for flu a/b 03/22/18 22:48 WBC RBC Hgb Hct MCV MCH MCHC RDW Plt Count MPV Neut % (Auto) Lymph % (Auto) [place] % (Auto) Eos % (Auto) Baso % (Auto) Neut # (Auto) Lymph # (Auto) [place] # (Auto) Eos # (Auto) Baso # (Auto) Neutrophils % (Manual) Band Neutrophils % Lymphocytes % (Manual) Monocytes % (Manual) Platelet Estimate Large Platelets Hypochromasia (manual) Acanthocytes (Spur) pO2 VBG pH VBG pCO2 VBG HCO3 VBG Total CO2 VBG O2 Sat (Calc) VBG Base Excess VBG Potassium Glucose Lactate FiO2 Blood Gas Comments Crit Value Called To Crit Value Called By Crit Value Read Back Blood Gas Notified Time Sodium Potassium Chloride Carbon Dioxide Anion Gap BUN Creatinine Est GFR ( Amer) Est GFR (Non-Af Amer) POC Glucose (mg/dL) 146 H Random Glucose Calcium Total Bilirubin AST ALT Alkaline Phosphatase Total Protein Albumin Globulin Albumin/Globulin Ratio Venous Blood Potassium Urine Color Urine Clarity Urine pH Ur Specific [place] Urine Protein Urine Glucose (UA) Urine Ketones Urine Blood Urine Nitrate Urine Bilirubin Urine Urobilinogen Ur Leukocyte Esterase Urine RBC (Auto) Urine Microscopic WBC Influenza Typ A,B (EIA) Assessment & Plan - Assessment and Plan (Free Text) Assessment: A/P: 47 y/o male with PMH of HTN, pre-diabetes, morbid obesity and chronic back/knees pain admitted for sepsis/LLE cellulitis. Sepsis, Criterias met with HR > 90, TM > 100.4, WBC > 12 and LLE cellulitis - Acute, - S/p 1L Bolus, Tylenol - S/p Zosyn - C/w Fluids, Start Cefazolin 1gm Q6H day#0 - Follow up LLE doppler - Follow up Bcx and Ucx LLE cellulitis - C/w Fluids, Start Cefazolin 1gm Q6H day#0 - Follow up LLE doppler - Follow up Bcx and Ucx Left Groin Pain - Improved - S/p Toradol - Continue pain management B/l LEs edema - Follow up echo Hypertension - Metoprolol Tart 100mg PO daily Elevated AST/ALT - likely due to fatty liver disease - Out patient follow up DVT ppx - Lovenox 50mg SC daily <Rohit Valdes A - Last Filed: 03/23/18 03:29> Results - Vital Signs Recent Vital Signs: Last Vital Signs Temp 99.9 F H 03/23/18 00:59 Pulse 88 03/22/18 22:37 Resp 19 03/22/18 16:12 BP 120/66 03/22/18 22:37 Pulse Ox 96 03/22/18 23:14 - Labs Result Diagrams: 03/22/18 17:14 03/22/18 17:14 Labs: Laboratory Results - last 24 hr 03/22/18 03/22/18 03/22/18 17:14 17:14 17:15 WBC 16.2 H RBC 5.79 Hgb 15.8 Hct 48.9 MCV 84.4 MCH 27.3 MCHC 32.3 L RDW 14.5 Plt Count 201 MPV 8.3 Neut % (Auto) 89.6 H Lymph % (Auto) 3.3 L [place] % (Auto) 6.7 Eos % (Auto) 0.1 Baso % (Auto) 0.3 Neut # (Auto) 14.5 H Lymph # (Auto) 0.5 L [place] # (Auto) 1.1 H Eos # (Auto) 0.0 Baso # (Auto) 0.0 Neutrophils % (Manual) 87 H Band Neutrophils % 4 H Lymphocytes % (Manual) 3 L Monocytes % (Manual) 6 Platelet Estimate Normal Large Platelets Present Hypochromasia (manual) Slight Acanthocytes (Spur) Moderate pO2 29 L VBG pH 7.42 VBG pCO2 51 VBG HCO3 29.4 VBG Total CO2 34.7 H VBG O2 Sat (Calc) 63.2 VBG Base Excess 7.2 H VBG Potassium 3.9 Glucose 204 H Lactate 2.2 H FiO2 21.0 Blood Gas Comments Lac=2.2 Crit Value Called To rayray Haile Crit Value Called By 22 Crit Value Read Back Y Blood Gas Notified Time 1719 Sodium 139 136.0 Potassium 3.8 Chloride 98 97.0 L Carbon Dioxide 28 Anion Gap 17 BUN 17 Creatinine 1.1 Est GFR ( Amer) > 60 Est GFR (Non-Af Amer) > 60 POC Glucose (mg/dL) Random Glucose 192 H Calcium 8.7 Total Bilirubin 0.9 AST 100 H ALT 167 H D Alkaline Phosphatase 100 Total Protein 7.8 Albumin 4.4 Globulin 3.4 Albumin/Globulin Ratio 1.3 Venous Blood Potassium 3.9 Urine Color Urine Clarity Urine pH Ur Specific [place] Urine Protein Urine Glucose (UA) Urine Ketones Urine Blood Urine Nitrate Urine Bilirubin Urine Urobilinogen Ur Leukocyte Esterase Urine RBC (Auto) Urine Microscopic WBC Influenza Typ A,B (EIA) 03/22/18 03/22/18 03/22/18 19:59 20:21 21:03 WBC RBC Hgb Hct MCV MCH MCHC RDW Plt Count MPV Neut % (Auto) Lymph % (Auto) [place] % (Auto) Eos % (Auto) Baso % (Auto) Neut # (Auto) Lymph # (Auto) [place] # (Auto) Eos # (Auto) Baso # (Auto) Neutrophils % (Manual) Band Neutrophils % Lymphocytes % (Manual) Monocytes % (Manual) Platelet Estimate Large Platelets Hypochromasia (manual) Acanthocytes (Spur) pO2 43 VBG pH 7.43 VBG pCO2 45 VBG HCO3 28.2 VBG Total CO2 31.3 H VBG O2 Sat (Calc) 86.1 H VBG Base Excess 4.8 H VBG Potassium 3.7 Glucose 168 H Lactate 2.1 FiO2 21.0 Blood Gas Comments Lac=2.1 Crit Value Called To rayray Haile Crit Value Called By 22 Crit Value Read Back Y Blood Gas Notified Time 2026 Sodium 133.0 Potassium Chloride 98.0 Carbon Dioxide Anion Gap BUN Creatinine Est GFR ( Amer) Est GFR (Non-Af Amer) POC Glucose (mg/dL) Random Glucose Calcium Total Bilirubin AST ALT Alkaline Phosphatase Total Protein Albumin Globulin Albumin/Globulin Ratio Venous Blood Potassium 3.7 Urine Color Yellow Urine Clarity Clear Urine pH 7.0 Ur Specific [place] 1.015 Urine Protein Negative Urine Glucose (UA) 150 Urine Ketones Negative Urine Blood Negative Urine Nitrate Negative Urine Bilirubin Negative Urine Urobilinogen 0.2-1.0 Ur Leukocyte Esterase Neg Urine RBC (Auto) 2 Urine Microscopic WBC < 1 Influenza Typ A,B (EIA) Negative for flu a/b 03/22/18 22:48 WBC RBC Hgb Hct MCV MCH MCHC RDW Plt Count MPV Neut % (Auto) Lymph % (Auto) [place] % (Auto) Eos % (Auto) Baso % (Auto) Neut # (Auto) Lymph # (Auto) [place] # (Auto) Eos # (Auto) Baso # (Auto) Neutrophils % (Manual) Band Neutrophils % Lymphocytes % (Manual) Monocytes % (Manual) Platelet Estimate Large Platelets Hypochromasia (manual) Acanthocytes (Spur) pO2 VBG pH VBG pCO2 VBG HCO3 VBG Total CO2 VBG O2 Sat (Calc) VBG Base Excess VBG Potassium Glucose Lactate FiO2 Blood Gas Comments Crit Value Called To Crit Value Called By Crit Value Read Back Blood Gas Notified Time Sodium Potassium Chloride Carbon Dioxide Anion Gap BUN Creatinine Est GFR ( Amer) Est GFR (Non-Af Amer) POC Glucose (mg/dL) 146 H Random Glucose Calcium Total Bilirubin AST ALT Alkaline Phosphatase Total Protein Albumin Globulin Albumin/Globulin Ratio Venous Blood Potassium Urine Color Urine Clarity Urine pH Ur Specific [place] Urine Protein Urine Glucose (UA) Urine Ketones Urine Blood Urine Nitrate Urine Bilirubin Urine Urobilinogen Ur Leukocyte Esterase Urine RBC (Auto) Urine Microscopic WBC Influenza Typ A,B (EIA) Attending/Attestation - Attestation I have personally seen and examined this patient.: Yes I have fully participated in the care of the patient.: Yes I have reviewed all pertinent clinical information: Yes Notes (Text): I saw, examined and discussed this patient with Dr Collins. I agree with his assessment and plan which represent my direct input. This is a 47 years old male recently dx with Panchal's Palsy, coming with fever,chills, and a burning pain to the left groin radiating down to mid medial left thigh. on palpation. There is also erythema to the Anterior medial region of the left left from ankle to below the knee. CT abdomen/pelvis IMPRESSION: 1. 1 cm left adrenal adenoma. 2. Fatty liver. 3. Small fat-containing umbilical hernia is noted. 4. No acute pathology. The Patient is started on Cefazolin for the Cellulitis and lymphangitis. Follow Blood culture and Duplex ultrasound of the left lower extremity to r/o DVT Follow up Am Cortisol, incidental adrenal adenoma and TSH. Rohit Valdes MD 03/23/18 03:28
[2018-03-23] MEDS: Sodium Chloride 0.9% 1,000 ML IV SCH ×2 (00:32→14:39)
[2018-03-23] MEDS: ceFAZolin 1 GM in Sodium Chloride 0.9% 100 ML IVPB SCH ×4 (04:18→21:11)
[2018-03-23 07:09] LABS: BASO # 0.1 K/uL (0.0-0.2); BASO % 0.7 % (0.0-2.0); EOS % 0.1 % (0.0-4.0); HEMOGLOBIN 15.2 g/dL (12.0-18.0); LYMPH % 7.3 % (20.0-40.0); MEAN CELL VOLUME 84.7 fl (80.0-94.0); MEAN CORPUSCULAR HEMOGLOBIN 27.1 pg (27.0-31.0); MEAN PLATELET VOLUME 8.2 fl (7.2-11.7); MONO # 0.8 K/uL (0.0-0.8); MONO % 6.1 % (0.0-10.0); NEUT # 11.4 K/uL (1.8-7.0); NEUT % 85.8 % (50.0-75.0); RBC 5.6 Mil/uL (4.40-5.90); RED CELL DISTRIBUTION WIDTH 14.4 % (11.5-14.5); WHITE BLOOD COUNT 13.2 K/uL (4.8-10.8)
--- NOTE | 2018-03-23 08:06 | US ---
Date of service: 03/23/2018 HISTORY: cellulitis. PRIORS: None. FINDINGS: 2-D, color and duplex Doppler analysis of the lower extremity venous circulation using routine protocol on the left common and superficial femoral as well as popliteal and posterior tibial veins. Venous compressibility: Normal. Flow and augmentation patterns: Normal. Visualized veins upper third of calf: Normal. Rodgers cyst: None. Right inguinal lymphadenopathy appreciated including the regular lymph node measure 1.7 x 3.9 cm. IMPRESSION: No sonographic or Doppler evidence for DVT in left lower extremity. Right inguinal lymphadenopathy identified incidentally.
--- NOTE | 2018-03-23 09:09 | RAD ---
Date of service: 03/22/2018 HISTORY: SOB COMPARISON: No prior. FINDINGS: LUNGS: No active pulmonary disease. PLEURA: No significant pleural effusion identified, no pneumothorax apparent. CARDIOVASCULAR: No aortic atherosclerotic calcification present. Prominent cardiac silhouette potentially magnified by technique. No pulmonary vascular congestion. OSSEOUS STRUCTURES: No significant abnormalities. VISUALIZED UPPER ABDOMEN: Normal. OTHER FINDINGS: None. IMPRESSION: Prominent appearing cardiac silhouette. No pulmonary vascular congestion. No airspace disease bilaterally.
--- NOTE | 2018-03-23 10:10 | CP.PCM.PN ---
Subjective - Date & Time of Evaluation Date of Evaluation: 03/23/18 Time of Evaluation: 10:11 - Subjective Subjective: STILL C/O L GROIN PAIN AND SWEATING Objective - Vital Signs/Intake and Output Vital Signs (last 24 hours): Temp Pulse Resp BP Pulse Ox 98.0 F 88 20 126/66 97 03/23/18 05:05 03/23/18 05:05 03/23/18 05:05 03/23/18 05:05 03/23/18 05:05 - Medications Medications: Current Medications Acetaminophen (Tylenol 325mg Tab) 650 mg PO Q4 PRN PRN Reason: Fever >100.4 F Acetaminophen (Tylenol 325mg Tab) 650 mg PO Q6 PRN PRN Reason: Pain, Mild (1-3) Enoxaparin Sodium (Lovenox) 50 mg SC DAILY [facility]; Protocol Sodium Chloride (Sodium Chloride 0.9%) 1,000 mls @ 150 mls/hr IV .Q6H40M JUNE Last Admin: 03/23/18 00:32 Dose: 150 mls/hr Cefazolin Sodium 1 gm/ Sodium (Chloride) 100 mls @ 100 mls/hr IVPB Q6 JUNE; Protocol Last Admin: 03/23/18 04:18 Dose: 100 mls/hr Ketorolac Tromethamine (Toradol) 15 mg IVP Q6 PRN PRN Reason: Pain, moderate (4-7) Metoprolol Tartrate (Lopressor) 100 mg PO DAILY [facility] - Labs Labs: 03/23/18 06:45 03/22/18 17:14 - Constitutional Appears: In Acute Distress - Head Exam Head Exam: ATRAUMATIC, NORMAL INSPECTION, NORMOCEPHALIC - Eye Exam Eye Exam: EOMI, Normal appearance, PERRL Pupil Exam: NORMAL ACCOMODATION, PERRL - ENT Exam ENT Exam: Mucous Membranes Moist, Normal Exam - Neck Exam Neck Exam: Full ROM, Normal Inspection. absent: Lymphadenopathy - Respiratory Exam Respiratory Exam: Clear to Ausculation Bilateral, NORMAL BREATHING PATTERN - Cardiovascular Exam Cardiovascular Exam: REGULAR RHYTHM, +S1, +S2. absent: Murmur - GI/Abdominal Exam GI & Abdominal Exam: Soft, Normal Bowel Sounds. absent: Tenderness - Rectal Exam Rectal Exam: NORMAL INSPECTION - Extremities Exam Extremities Exam: Full ROM, Normal Capillary Refill, Normal Inspection, T enderness. absent: Joint Swelling, Pedal Edema Additional comments: L GROIN TENDERNESS/REDNESS AND DRAINAGE OF PURULENT MATERIAL - Back Exam Back Exam: NORMAL INSPECTION - Neurological Exam Neurological Exam: Alert, Awake, CN II-XII Intact, Normal Gait, Oriented x3 - Psychiatric Exam Psychiatric exam: Normal Affect, Normal Mood - Skin Skin Exam: Dry, Intact, Normal Color, Warm Assessment and Plan - Assessment and Plan (Free Text) Assessment: HTN MORBID OBESITY SIRS CELLULITIS/ABSCESS OF L GROIN Plan: CONTINUE ANTIBIOTIC RX ANALGESICS FOR PAIN INFECTIOUS DZ EVAL
--- NOTE | 2018-03-23 14:29 | CT ---
Date of service: 03/22/2018 PROCEDURE: CT Abdomen and Pelvis with contrast HISTORY: LLQ and groin pain, erythema COMPARISON: Abdomen pelvis CT without contrast 01/10/2018. TECHNIQUE: Following oral and intravenous contrast administration, a CT examination of the abdomen and pelvis performed from the domes of the diaphragms to the symphysis pubis with reformatted datasets provided not only axial but also sagittal and coronal series. Coronal and sagittal reformats were generated. Contrast dose: Omnipaque 300, 95 cc Radiation dose: Total exam DLP = 923.42 mGy-cm. This CT exam was performed using one or more of the following dose reduction techniques: Automated exposure control, adjustment of the mA and/or kV according to patient size, and/or use of iterative reconstruction technique. FINDINGS: LOWER THORAX: Unremarkable. LIVER: Extensive hepatic steatosis reiterated without focal mass or prominent intrahepatic biliary duct dilatation. GALLBLADDER AND BILE DUCTS: Unremarkable. PANCREAS: Unremarkable. No gross lesion or ductal dilatation. SPLEEN: Unremarkable. ADRENALS: Normal appearing right adrenal gland. 1.7 cm nodule left adrenal gland stable. The nodule measured 10 Hounsfield units on prior abdomen pelvis CT 01/10/2018. KIDNEYS AND URETERS: Unremarkable. No hydronephrosis. No solid mass. VASCULATURE: Unremarkable. No aortic aneurysm. No aortic atherosclerotic calcification or mural plaque present. BOWEL: Unremarkable. No obstruction. No gross mural thickening. APPENDIX: Normal appendix. PERITONEUM: A tiny fat containing umbilical hernia is reiterated. No free fluid. No free air. LYMPH NODES: Unremarkable. No enlarged lymph nodes. BLADDER: Unremarkable. REPRODUCTIVE: Unremarkable. BONES: No acute fracture. OTHER FINDINGS: Reactive left inguinal lymph node is appreciated with local per lymph node reaction measuring 3.2 x 1.8 cm. IMPRESSION: 1. No definite acute intra-abdominal findings although a 3.2 cm reactive lymph node exhibits local reactive changes at its periphery at the left inguinal region. 2. Extensive hepatic steatosis reiterated. 3. Stable tiny umbilical hernia containing only fat. 4. Stable 1.7 cm left adrenal adenoma. Preliminary report provided by [employer], 03/22/2018.
[2018-03-23] MEDS: Enoxaparin 60 mg Syringe SC SCH (16:01)
--- NOTE | 2018-03-23 17:49 | CARD ---
APPROVED REPORT Date of service: 03/23/2018 EXAM: Two-dimensional and M-mode echocardiogram with Doppler and color Doppler. Other Information Quality : AverageRhythm : NSR Technically limited study due to body habitus. INDICATION Peripheral Edema 2D DIMENSIONS IVSd1.24 (0.7-1.1cm)LVDd4.60 (3.9-5.9cm) LVOT Diameter2.59 (1.8-2.4cm)PWd1.56 (0.7-1.1cm) IVSs1.64 (0.8-1.2cm)LVDs3.39 (2.5-4.0cm) FS (%) 26.2 %PWs1.76 (0.8-1.2cm) M-Mode DIMENSIONS Left Atrium (MM)4.33 (2.5-4.0cm)IVSd1.39 (0.7-1.1cm) Aortic Root3.44 (2.2-3.7cm)LVDd6.15 (4.0-5.6cm) Aortic Cusp Exc.2.25 (1.5-2.0cm)PWd1.19 (0.7-1.1cm) IVSs1.79 cmFS (%) 38 % LVDs3.81 (2.0-3.8cm)PWs1.72 cm Aortic Valve LVOT Peak Qqzqqhir20.5cm/sLVOT VTI13.59cm Mitral Valve MV E Lwreyess86.6cm/sMV DECEL [id number] A Ojxbvrny11.4cm/s MV [id number]/A ratio0.9MVA (PHT)3.62cm2 TDI Lateral E' Peak V6.52cm/sMedial E' Peak V9.37cm/sE/Lateral E'9.3 E/Medial E'6.5 Pulmonary Valve PV Peak Uvgpofec468.6cm/s LEFT VENTRICLE The left ventricle is normal size. There is mild concentric left ventricular hypertrophy. The left ventricular systolic function is normal. The estimated ejection fraction is 60-65% No regional wall motion abnormalities noted.. Transmitral Doppler flow pattern is Grade I-abnormal relaxation pattern. No left ventricle thrombus noted on this study. There is no ventricular septal defect visualized. There is no left ventricular aneurysm. There is no mass noted in the left ventricle. RIGHT VENTRICLE The right ventricle is normal size. There is normal right ventricular wall thickness. The right ventricular systolic function is normal. ATRIA The left atrium is mildly dilated. The right atrium size is normal. The interatrial septum is intact with no evidence for an atrial septal defect. AORTIC VALVE The aortic valve is normal in structure. No aortic regurgitation is present. There is no aortic valvular stenosis. There is no aortic valvular vegetation. MITRAL VALVE The mitral valve is normal in structure. There is no evidence of mitral valve prolapse. There is no mitral valve stenosis. There is no mitral valve regurgitation noted. TRICUSPID VALVE The tricuspid valve is normal in structure. There is trivial tricuspid valve regurgitation noted. There is no tricuspid valve prolapse or vegetation. There is no tricuspid valve stenosis. PULMONIC VALVE The pulmonary valve is normal in structure. There is no pulmonic valvular regurgitation. There is no pulmonic valvular stenosis. GREAT VESSELS The aortic root is normal in size. The ascending aorta is normal in size. Not visualized PERICARDIAL EFFUSION There is no pericardial effusion. There is no pleural effusion. <Conclusion> There is mild concentric left ventricular hypertrophy. The estimated ejection fraction is 60-65% Transmitral Doppler flow pattern is Grade I-abnormal relaxation pattern. The left atrium is mildly dilated. There is trivial tricuspid valve regurgitation noted.
[2018-03-23] MEDS ORDERED: Enoxaparin 40 mg Syringe SC SCH (22:00)
[2018-03-24] MEDS: Sodium Chloride 0.9% 1,000 ML IV SCH ×5 (01:44→16:45)
[2018-03-24] MEDS: ceFAZolin 1 GM in Sodium Chloride 0.9% 100 ML IVPB SCH ×4 (04:23→21:42)
[2018-03-24] MEDS: Enoxaparin 60 mg Syringe SC SCH (08:51)
--- NOTE | 2018-03-24 10:42 | CP.PCM.PN ---
Subjective - Date & Time of Evaluation Date of Evaluation: 03/24/18 Time of Evaluation: 10:44 - Subjective Subjective: REDNESS AND SWELLING OF L LEG PERSISTS MINIMAL DRAINAGE FROM L GROIN AREA NOTED BUT NO SOURCE NOTED STILL HAS L LEG AND GROIN PAIN Objective - Vital Signs/Intake and Output Vital Signs (last 24 hours): Temp Pulse Resp BP Pulse Ox 98.3 F 96 H 20 146/93 H 95 03/24/18 07:47 03/24/18 07:47 03/24/18 07:47 03/24/18 07:47 03/24/18 07:47 - Medications Medications: Current Medications Acetaminophen (Tylenol 325mg Tab) 650 mg PO Q4 PRN PRN Reason: Fever >100.4 F Last Admin: 03/23/18 12:16 Dose: 650 mg Acetaminophen (Tylenol 325mg Tab) 650 mg PO Q6 PRN PRN Reason: Pain, Mild (1-3) Enoxaparin Sodium (Lovenox) 50 mg SC DAILY [facility]; Protocol Last Admin: 03/24/18 08:51 Dose: 50 mg Sodium Chloride (Sodium Chloride 0.9%) 1,000 mls @ 150 mls/hr IV .Q6H40M [facility] Last Admin: 03/24/18 04:25 Dose: 150 mls/hr Cefazolin Sodium 1 gm/ Sodium (Chloride) 100 mls @ 100 mls/hr IVPB Q6 [facility]; Protocol Last Admin: 03/24/18 09:16 Dose: 100 mls/hr Vancomycin HCl 1 gm/ Sodium (Chloride) 250 mls @ 125 mls/hr IVPB Q12@0600,1800 [facility]; Protocol Last Admin: 03/24/18 05:53 Dose: 125 mls/hr Ketorolac Tromethamine (Toradol) 15 mg IVP Q6 PRN PRN Reason: Pain, moderate (4-7) Metoprolol Tartrate (Lopressor) 100 mg PO DAILY [facility] Last Admin: 03/24/18 08:51 Dose: 100 mg - Labs Labs: 03/23/18 06:45 03/22/18 17:14 - Constitutional Appears: No Acute Distress - Head Exam Head Exam: ATRAUMATIC, NORMAL INSPECTION, NORMOCEPHALIC - Eye Exam Eye Exam: EOMI, Normal appearance, PERRL Pupil Exam: NORMAL ACCOMODATION, PERRL - ENT Exam ENT Exam: Mucous Membranes Moist, Normal Exam - Neck Exam Neck Exam: Full ROM, Normal Inspection. absent: Lymphadenopathy - Respiratory Exam Respiratory Exam: Clear to Ausculation Bilateral, NORMAL BREATHING PATTERN - Cardiovascular Exam Cardiovascular Exam: REGULAR RHYTHM, +S1, +S2. absent: Murmur - GI/Abdominal Exam GI & Abdominal Exam: Soft, Normal Bowel Sounds. absent: Tenderness - Rectal Exam Rectal Exam: NORMAL INSPECTION - Exam Exam: NORMAL INSPECTION - Extremities Exam Extremities Exam: Full ROM, Normal Capillary Refill, Normal Inspection, Tenderness. absent: Joint Swelling, Pedal Edema Additional comments: REDNESS AND SWELLING OF L LEG WITH WARMTH - Back Exam Back Exam: NORMAL INSPECTION - Neurological Exam Neurological Exam: Alert, Awake, CN II-XII Intact, Normal Gait, Oriented x3 - Psychiatric Exam Psychiatric exam: Normal Affect, Normal Mood - Skin Skin Exam: Dry, Intact, Normal Color, Warm Assessment and Plan - Assessment and Plan (Free Text) Assessment: CELLULITIS OF L LEG HTN DM MOBID OBESITY SIRS Plan: CONTINUE IV ANTIBIOTIC RX ANALGESICS FOR PAIN AWAIT CULTURE RESULTS
--- NOTE | 2018-03-24 11:04 | CP.PCM.CON ---
History of Present Illness - History of Present Illness History of Present Illness: 47yo male c/o L groin pain with mild dysuria, associated with fever/chills ongoing since yesterday. Denies vomiting, diarrhea, hematuria or perineal pain. Denies skin lesions or boils or recent infections. Vanco added - severe cellulitis SIRS await cultures Review of Systems - Review of Systems Systems not reviewed;Unavailable: Intubated - Constitutional Constitutional: As Per HPI - EENT Eyes: absent: As Per HPI, Blind Spots, Blurred Vision, Change in Vision, Decreased Night Vision, Diplopia, Discharge, Dry Eye, Exophthalmos, Floaters, Irritation, Itchy Eyes, Loss of Peripheral Vision, Pain, Photophobia, Requires Corrective Lenses, Sees Flashes, Spots in Vision, Tunnel Vision, Other Visual Disturbances, Loss of Vision, Other Ears: absent: As Per HPI, Decreased Hearing, Ear Discharge, Ear Pain, Tinnitus, Abnormal Hearing, Disequilibrium, Dizziness, Other Nose/Mouth/Throat: absent: As Per HPI, Epistaxis, Nasal Congestion, Nasal Discharge, Nasal Obstruction, Nasal Trauma, Nose Pain, Post Nasal Drip, Sinus Pain, Sinus Pressure, Bleeding Gums, Change in Voice, Dental Pain, Dry Mouth, Dysphagia, Halitosis, Hoarsness, Lip Swelling, Mouth Lesions, Mouth Pain, Odynophagia, Sore Throat, Throat Swelling, Tongue Swelling, Facial Pain, Neck Pain, Neck Mass, Other - Cardiovascular Cardiovascular: absent: As Per HPI, Acrocyanosis, Chest Pain, Chest Pain at Rest, Chest Pain with Activity, Claudication, Diaphoresis, Dyspnea, Dyspnea on Exertion, Edema, Irregular Heart Rhythm, Pain Radiating to Arm/Neck/Jaw, Leg Edema, Leg Ulcers, Lightheadedness, Orthopnea, Palpitations, Paroxysmal Noc turnal Dyspnea, Pedal Edema, Radiating Pain, Rapid Heart Rate, Slow Heart Rate, Syncope, Other - Respiratory Respiratory: absent: As Per HPI, Cough, Dyspnea, Hemoptysis, Dyspnea on Exertion, Wheezing, Snoring, Stridor, Pain on Inspiration, Chest Congestion, Exc essive Mucous Production, Change in Mucous Color, Pain with Coughing, Other - Gastrointestinal Gastrointestinal: absent: As Per HPI, Abdominal Pain, Belching, Bloating, Change in Bowel Habits, Change in Stool Character, Coffee Ground Emesis, Constipation, Cramping, Diarrhea, Dyspepsia, Dysphagia, Early Satiety, Excessive Flatus, Fecal Incontinence, Heartburn, Hematemesis, Hematochezia, Loose Stools, Melena, Nausea, Odynophagia, Temesmus, Vomiting, Other - Genitourinary Genitourinary: absent: As Per HPI, Change in Urinary Stream, Difficulty Urinating, Dysuria, Flank Pain, Hematuria, Pyuria, Nocturia, Urinary Inconti nence, Urinary Frequency, Urinary Hesitance, Urinary Urgency, Voiding Freq/Small Amts, Freq UTI, Hx Renal/Bladder Calculi, Hx /Renal Surgery, Bladder Distension, Other - Musculoskeletal Musculoskeletal: As Per HPI - Integumentary Integumentary: As Per HPI, Skin Pain, Wounds - Neurological Neurological: absent: Abnormal Gait, Abnormal Hearing, Abnormal Movements, Abnormal Speech, Behavioral Changes, Burning Sensations, Confusion, Convulsions, Disequilibrium, Dizziness, Numbness, Focal Weakness, Frequent Falls, Headaches, Lack of Coordination, Loss of Vision, Memory Loss, Paresthesias, Radicular Pain, Restless Legs, Sensory Deficit, Syncope, Tingling, Tremor, Vertigo, Weakness, Other Visual Disturbances, Other - Psychiatric Psychiatric: absent: As Per HPI, Abnormal Sleep Pattern, Anhedonia, Anxiety, Auditory Hallucinations, Behavioral Changes, Change in Appetite, Change in Libido, Confusion, Depression, Difficulty Concentrating, Hallucinations, Homicidal Ideation, Hopelessness, Irritability, Memory Loss, Mood Swings, Panic Attacks, Paranoia, Suicidal Ideation, Visual Hallucinations, Tactile Hallucinations, Other - Endocrine Endocrine: absent: As Per HPI, Change in Body Appearance, Change in Libido, Cold Intolorance, Deepening of Voice, Excessive Sweating, Fatigue, Flushing, Heat Intolorance, Increase in Ring/Shoe/Hat Size, Palpitations, Polydipsia, Polyphagia, Polyuria, Other - Hematologic/Lymphatic Hematologic: absent: As Per HPI, Easy Bleeding, Easy Bruising, Lymphadenopathy, Other Past Patient History - Infectious Disease Hx of Infectious Diseases: None - Past Medical History & Family History Past Medical History?: Yes - Past Social History Smoking Status: denies - CARDIAC Hx Cardiac Disorders: Yes Hx Hypertension: Yes - NEUROLOGICAL Other/Comment: Dx w/ pedroza's palsy 2 wks ago - ENDOCRINE/METABOLIC Hx Endocrine Disorders: Yes - HEMATOLOGICAL/ONCOLOGICAL Hx Blood Disorders: No (denies) - MUSCULOSKELETAL/RHEUMATOLOGICAL Hx Back Pain: Yes Hx Falls: No - GENITOURINARY/GYNECOLOGICAL Hx Genitourinary Disorders: No (denies) - PSYCHIATRIC Hx Psychophysiologic Disorder: No (denies) Hx Substance Use: No - SURGICAL HISTORY Hx Surgeries: No - ANESTHESIA Hx Anesthesia: Yes Hx Anesthesia Reactions: No Hx Malignant Hyperthermia: No Has any member of the family had a problem w/ anesthesia?: No Meds Allergies/Adverse Reactions: Allergies Allergy/AdvReac Type Severity Reaction Status Date / Time No Known Allergies Allergy Verified 11/23/16 09:55 - Medications Medications: Current Medications Acetaminophen (Tylenol 325mg Tab) 650 mg PO Q4 PRN PRN Reason: Fever >100.4 F Last Admin: 03/23/18 12:16 Dose: 650 mg Acetaminophen (Tylenol 325mg Tab) 650 mg PO Q6 PRN PRN Reason: Pain, Mild (1-3) Enoxaparin Sodium (Lovenox) 50 mg SC DAILY [facility]; Protocol Last Admin: 03/24/18 08:51 Dose: 50 mg Sodium Chloride (Sodium Chloride 0.9%) 1,000 mls @ 150 mls/hr IV .Q6H40M [facility] Last Admin: 03/24/18 04:25 Dose: 150 mls/hr Cefazolin Sodium 1 gm/ Sodium (Chloride) 100 mls @ 100 mls/hr IVPB Q6 [facility]; Pr otocol Last Admin: 03/24/18 09:16 Dose: 100 mls/hr Vancomycin HCl 1 gm/ Sodium (Chloride) 250 mls @ 125 mls/hr IVPB Q12@0600,1800 [facility]; Protocol Last Admin: 03/24/18 05:53 Dose: 125 mls/hr Ketorolac Tromethamine (Toradol) 15 mg IVP Q6 PRN PRN Reason: Pain, moderate (4-7) Metoprolol Tartrate (Lopressor) 100 mg PO DAILY [facility] Last Admin: 03/24/18 08:51 Dose: 100 mg Physical Exam - Constitutional Appears: Non-toxic - Head Exam Head Exam: ATRAUMATIC, NORMAL INSPECTION, NORMOCEPHALIC - Eye Exam Eye Exam: absent: Scleral icterus - ENT Exam ENT Exam: Mucous Membranes Dry - Neck Exam Neck exam: Negative for: Lymphadenopathy - Respiratory Exam Respiratory Exam: Decreased Breath Sounds, Clear to Auscultation Bilateral - Cardiovascular Exam Cardiovascular Exam: REGULAR RHYTHM, +S1, +S2 - GI/Abdominal Exam GI & Abdominal Exam: Diminished Bowel Sounds, Soft. absent: Tenderness - Rectal Exam Rectal Exam: Deferred - Exam Exam: NORMAL INSPECTION - Extremities Exam Extremities exam: Positive for: pedal edema, tenderness, pedal pulses present. Negative for: calf tenderness, normal inspection Additional comments: swelling/ redness left leg - Back Exam Back exam: NORMAL INSPECTION. absent: CVA tenderness (L), CVA tenderness (R) - Neurological Exam Neurological exam: Alert, CN II-XII Intact, Oriented x3, Reflexes Normal - Psychiatric Exam Psychiatric exam: Normal Mood - Skin Skin Exam: Dry, Erythema Results - Vital Signs Recent Vital Signs: Last Vital Signs Temp 98.3 F 03/24/18 07:47 Pulse 96 H 03/24/18 07:47 Resp 20 03/24/18 07:47 BP 146/93 H 03/24/18 07:47 Pulse Ox 95 03/24/18 07:47 - Labs Result Diagrams: 03/25/18 06:00 03/25/18 06:00 Labs: Laboratory Results - last 24 hr 03/23/18 03/23/18 03/23/18 06:45 06:45 06:45 Hemoglobin A1c 7.8 H Procalcitonin 1.54 H Cortisol AM Sample 15.1 Assessment & Plan (1) Cellulitis and abscess of left leg Status: Acute (2) SIRS (systemic inflammatory response syndrome) Status: Acute - Assessment and Plan (Free Text) Assessment: await cultures cont IV rx for possible MRSA/ strep
[2018-03-25] MEDS: Sodium Chloride 0.9% 1,000 ML IV SCH ×2 (02:59→07:50)
[2018-03-25] MEDS: ceFAZolin 1 GM in Sodium Chloride 0.9% 100 ML IVPB SCH ×2 (04:35→09:33)
[2018-03-25 06:23] LABS: BASO % 0.5 % (0.0-2.0); EOS # 0.1 K/uL (0.0-0.7); EOS % 1.9 % (0.0-4.0); HEMOGLOBIN 14.6 g/dL (12.0-18.0); LYMPH # 1.3 K/uL (1.0-4.3); LYMPH % 19.7 % (20.0-40.0); MEAN CELL VOLUME 84.8 fl (80.0-94.0); MEAN CORPUSCULAR HEMOGLOBIN 27.9 pg (27.0-31.0); MEAN CORPUSCULAR HGB CONC 32.9 g/dL (33.0-37.0); MEAN PLATELET VOLUME 8.3 fl (7.2-11.7); MONO # 0.8 K/uL (0.0-0.8); MONO % 11.9 % (0.0-10.0); NEUT # 4.2 K/uL (1.8-7.0); NRBC % 0.1 % (0.0-0.0); RBC 5.24 Mil/uL (4.40-5.90); RED CELL DISTRIBUTION WIDTH 14.1 % (11.5-14.5); WHITE BLOOD COUNT 6.4 K/uL (4.8-10.8)
[2018-03-25 06:37] LABS: BLOOD UREA NITROGEN 11 mg/dl (9-20); CALCIUM 8.1 mg/dL (8.4-10.2); GFR NON-AFRICAN AMERICAN > 60
[2018-03-25] MEDS: Enoxaparin 60 mg Syringe SC SCH (09:34)
--- NOTE | 2018-03-25 11:30 | CP.PCM.PN ---
Subjective - Date & Time of Evaluation Date of Evaluation: 03/25/18 Time of Evaluation: 11:30 - Subjective Subjective: L LEG PAIN AND ESDNESS IMPROVING ALL CULTURES NEGATIVE LEKOCYTOSIS IMPOVING Objective - Vital Signs/Intake and Output Vital Signs (last 24 hours): Temp Pulse Resp BP Pulse Ox 97.8 F 84 20 143/88 96 03/25/18 09:06 03/25/18 09:34 03/25/18 09:06 03/25/18 09:34 03/25/18 09:06 - Medications Medications: Current Medications Acetaminophen (Tylenol 325mg Tab) 650 mg PO Q4 PRN PRN Reason: Fever >100.4 F Last Admin: 03/23/18 12:16 Dose: 650 mg Acetaminophen (Tylenol 325mg Tab) 650 mg PO Q6 PRN PRN Reason: Pain, Mild (1-3) Enoxaparin Sodium (Lovenox) 50 mg SC DAILY [facility]; Protocol Last Admin: 03/25/18 09:34 Dose: 50 mg Sodium Chloride (Sodium Chloride 0.9%) 1,000 mls @ 150 mls/hr IV .Q6H40M [facility] Last Admin: 03/25/18 07:50 Dose: Not Given Cefazolin Sodium 1 gm/ Sodium (Chloride) 100 mls @ 100 mls/hr IVPB Q6 [facility]; Protocol Last Admin: 03/25/18 09:33 Dose: 100 mls/hr Vancomycin HCl 1 gm/ Sodium (Chloride) 250 mls @ 125 mls/hr IVPB Q12@0600,1800 [facility]; Protocol Last Admin: 03/25/18 07:01 Dose: 125 mls/hr Ketorolac Tromethamine (Toradol) 15 mg IVP Q6 PRN PRN Reason: Pain, moderate (4-7) Metoprolol Tartrate (Lopressor) 100 mg PO DAILY [facility] Last Admin: 03/25/18 09:34 Dose: 100 mg - Labs Labs: 03/25/18 06:00 03/25/18 06:00 - Constitutional Appears: No Acute Distress - Head Exam Head Exam: ATRAUMATIC, NORMAL INSPECTION, NORMOCEPHALIC - Eye Exam Eye Exam: EOMI, Normal appearance, PERRL Pupil Exam: NORMAL ACCOMODATION, PERRL - ENT Exam ENT Exam: Mucous Membranes Moist, Normal Exam - Neck Exam Neck Exam: Full ROM, Normal Inspection. absent: Lymphadenopathy - Respiratory Exam Respiratory Exam: Clear to Ausculation Bilateral, NORMAL BREATHING PATTERN - Cardiovascular Exam Cardiovascular Exam: REGULAR RHYTHM, +S1, +S2. absent: Murmur - GI/Abdominal Exam GI & Abdominal Exam: Soft, Normal Bowel Sounds. absent: Tenderness - Rectal Exam Rectal Exam: NORMAL INSPECTION - Extremities Exam Extremities Exam: Full ROM, Normal Capillary Refill, Normal Inspection. absent: Joint Swelling, Pedal Edema - Back Exam Back Exam: NORMAL INSPECTION, tenderness - Neurological Exam Neurological Exam: Alert, Awake, CN II-XII Intact, Normal Gait, Oriented x3 - Psychiatric Exam Psychiatric exam: Normal Affect, Normal Mood - Skin Skin Exam: Dry, Erythema, Intact, Normal Color, Warm Assessment and Plan - Assessment and Plan (Free Text) Assessment: CELLULITIS OF L LEG SIRS HYPERGLYCEMIA--?DM OBESITY Plan: CONTINUE ANTIBIOTIC RX MONITOR S.GLU
[2018-03-25 12:25] LABS: HEPATITIS B SURFACE AG Negative (NEGATIVE)
[2018-03-25 12:32] LABS: HEPATITIS A IGM NEGATIVE (NEGATIVE); HEPATITIS B CORE AB NEGATIVE (NEGATIVE)
[2018-03-25 12:44] LABS: HEPATITIS C ANTIBODY NEGATIVE (NEGATIVE)
--- NOTE | 2018-03-25 12:45 | CP.PCM.PN ---
Subjective - Date & Time of Evaluation Date of Evaluation: 03/25/18 Time of Evaluation: 09:00 - Subjective Subjective: redness /swelling persist IV rx in progress await Vanco levels Objective - Vital Signs/Intake and Output Vital Signs (last 24 hours): Temp Pulse Resp BP Pulse Ox 97.8 F 84 20 143/88 96 03/25/18 09:06 03/25/18 09:34 03/25/18 09:06 03/25/18 09:34 03/25/18 09:06 - Medications Medications: Current Medications Acetaminophen (Tylenol 325mg Tab) 650 mg PO Q4 PRN PRN Reason: Fever >100.4 F Last Admin: 03/23/18 12:16 Dose: 650 mg Acetaminophen (Tylenol 325mg Tab) 650 mg PO Q6 PRN PRN Reason: Pain, Mild (1-3) Enoxaparin Sodium (Lovenox) 50 mg SC DAILY [facility]; Protocol Last Admin: 03/25/18 09:34 Dose: 50 mg Sodium Chloride (Sodium Chloride 0.9%) 1,000 mls @ 150 mls/hr IV .Q6H40M [facility] Last Admin: 03/25/18 07:50 Dose: Not Given Cefazolin Sodium 1 gm/ Sodium (Chloride) 100 mls @ 100 mls/hr IVPB Q6 [facility]; Protocol Last Admin: 03/25/18 09:33 Dose: 100 mls/hr Vancomycin HCl 1 gm/ Sodium (Chloride) 250 mls @ 125 mls/hr IVPB Q12@0600,1800 [facility]; Protocol Last Admin: 03/25/18 07:01 Dose: 125 mls/hr Ketorolac Tromethamine (Toradol) 15 mg IVP Q6 PRN PRN Reason: Pain, moderate (4-7) Metoprolol Tartrate (Lopressor) 100 mg PO DAILY [facility] Last Admin: 03/25/18 09:34 Dose: 100 mg - Labs Labs: 03/25/18 06:00 03/25/18 06:00 - Constitutional Appears: Non-toxic, Chronically Ill - Head Exam Head Exam: NORMOCEPHALIC - Eye Exam Eye Exam: absent: Scleral icterus - ENT Exam ENT Exam: Mucous Membranes Dry - Neck Exam Neck Exam: absent: Lymphadenopathy - Respiratory Exam Respiratory Exam: Decreased Breath Sounds - Cardiovascular Exam Cardiovascular Exam: REGULAR RHYTHM - GI/Abdominal Exam GI & Abdominal Exam: Distended, Soft - Rectal Exam Rectal Exam: Deferred - Exam Exam: NORMAL INSPECTION External exam: Erythema, Swelling - Extremities Exam Extremities Exam: absent: Calf Tenderness, Pedal Edema - Back Exam Back Exam: absent: CVA tenderness (L), CVA tenderness (R) - Neurological Exam Neurological Exam: Alert, CN II-XII Intact, Oriented x3 - Psychiatric Exam Psychiatric exam: Normal Mood - Skin Skin Exam: Dry Assessment and Plan (1) Cellulitis and abscess of left leg Status: Acute (2) SIRS (systemic inflammatory response syndrome) Status: Acute - Assessment and Plan (Free Text) Assessment: cont iv rx await cultures check Vanco levels
[2018-03-26] MEDS: Enoxaparin 60 mg Syringe SC SCH (08:55)
--- NOTE | 2018-03-26 10:58 | CP.PCM.PN ---
Subjective - Date & Time of Evaluation Date of Evaluation: 03/26/18 Time of Evaluation: 10:58 - Subjective Subjective: AFEBRILE CELLULITIS OF L LEG IMPROVING LESS LEG PAIN ALL CULTURES SO FAR NO GROWTH Objective - Vital Signs/Intake and Output Vital Signs (last 24 hours): Temp Pulse Resp BP Pulse Ox 98.1 F 88 19 156/92 H 94 L 03/26/18 08:04 03/26/18 08:04 03/26/18 08:04 03/26/18 08:04 03/26/18 08:04 - Medications Medications: Current Medications Acetaminophen (Tylenol 325mg Tab) 650 mg PO Q4 PRN PRN Reason: Fever >100.4 F Last Admin: 03/23/18 12:16 Dose: 650 mg Acetaminophen (Tylenol 325mg Tab) 650 mg PO Q6 PRN PRN Reason: Pain, Mild (1-3) Enoxaparin Sodium (Lovenox) 50 mg SC DAILY [facility]; Protocol Last Admin: 03/26/18 08:55 Dose: 50 mg Sodium Chloride (Sodium Chloride 0.9%) 1,000 mls @ 150 mls/hr IV .Q6H40M [facility] Last Admin: 03/25/18 07:50 Dose: Not Given Ampicillin Sodium/Sulbactam (Sodium 3 gm/ Sodium Chloride) 100 mls @ 100 mls/hr IVPB Q6 [facility]; Protocol Last Admin: 03/26/18 04:27 Dose: 100 mls/hr Vancomycin HCl 1 gm/ Sodium (Chloride) 250 mls @ 166.667 mls/hr IVPB Q8@0100,0900,1700 [facility]; Protocol Last Admin: 03/26/18 09:01 Dose: 166.667 mls/hr Ketorolac Tromethamine (Toradol) 15 mg IVP Q6 PRN PRN Reason: Pain, moderate (4-7) Metoprolol Tartrate (Lopressor) 100 mg PO DAILY [facility] Last Admin: 03/26/18 08:56 Dose: 100 mg - Labs Labs: 03/25/18 06:00 03/25/18 06:00 - Constitutional Appears: No Acute Distress - Head Exam Head Exam: ATRAUMATIC, NORMAL INSPECTION, NORMOCEPHALIC - Eye Exam Eye Exam: EOMI, Normal appearance, PERRL Pupil Exam: NORMAL ACCOMODATION, PERRL - ENT Exam ENT Exam: Mucous Membranes Moist, Normal Exam - Neck Exam Neck Exam: Full ROM, Normal Inspection. absent: Lymphadenopathy - Respiratory Exam Respiratory Exam: Clear to Ausculation Bilateral, NORMAL BREATHING PATTERN - Cardiovascular Exam Cardiovascular Exam: REGULAR RHYTHM, +S1, +S2. absent: Murmur - GI/Abdominal Exam GI & Abdominal Exam: Soft, Normal Bowel Sounds. absent: Tenderness - Rectal Exam Rectal Exam: NORMAL INSPECTION - Exam Bimanual exam: NORMAL BIMANUAL EXAM - Extremities Exam Extremities Exam: Full ROM, Normal Capillary Refill, Normal Inspection, Tenderness. absent: Joint Swelling, Pedal Edema Additional comments: CELLULITIS OF L LEG IMPROVING - Back Exam Back Exam: NORMAL INSPECTION - Neurological Exam Neurological Exam: Alert, Awake, CN II-XII Intact, Normal Gait, Oriented x3 - Psychiatric Exam Psychiatric exam: Normal Affect, Normal Mood - Skin Skin Exam: Dry, Erythema, Intact, Warm Assessment and Plan - Assessment and Plan (Free Text) Assessment: CELLULITIS OF LEG SIRS HYPERTENSION HYPERGLYCEMIA OBESITY Plan: CONTINUE CURRENT RX
[2018-03-26] MEDS: Pantoprazole 40 mg EC Tab PO SCH ×2 (13:21→17:25)
[2018-03-26] MEDS: guaiFENesin-DM 600-30 mg ER Tab PO SCH ×2 (13:21→17:25)
[2018-03-26] MEDS: Sodium Chloride 0.9% 1,000 ML IV SCH (21:20)
[2018-03-27] MEDS: Sodium Chloride 0.9% 1,000 ML IV SCH ×5 (00:30→17:17)
[2018-03-27 08:06] VITALS: O2SAT 95
[2018-03-27] MEDS: Enoxaparin 60 mg Syringe SC SCH (09:00)
[2018-03-27] MEDS: Pantoprazole 40 mg EC Tab PO SCH ×2 (09:02→16:09)
[2018-03-27] MEDS: guaiFENesin-DM 600-30 mg ER Tab PO SCH ×2 (09:03→16:10)
[2018-03-27 10:15] LABS: HEMOGLOBIN 14.5 g/dL (12.0-18.0); MEAN CELL VOLUME 85.1 fl (80.0-94.0); MEAN CORPUSCULAR HEMOGLOBIN 27.3 pg (27.0-31.0); RBC 5.32 Mil/uL (4.40-5.90); RED CELL DISTRIBUTION WIDTH 14.3 % (11.5-14.5); WHITE BLOOD COUNT 7.4 K/uL (4.8-10.8)
[2018-03-27 10:27] LABS: BLOOD UREA NITROGEN 10 mg/dl (9-20); CALCIUM 8.1 mg/dL (8.4-10.2); GFR NON-AFRICAN AMERICAN > 60
--- NOTE | 2018-03-27 12:22 | CP.PCM.PN ---
Subjective - Date & Time of Evaluation Date of Evaluation: 03/27/18 Time of Evaluation: 12:23 - Subjective Subjective: ERYTEMA AND EDEMA OF L LEG CONTINUES TO IMPROVE L LEG SWELLING LESS AFEBRILE Objective - Vital Signs/Intake and Output Vital Signs (last 24 hours): Temp Pulse Resp BP Pulse Ox 97.8 F 88 19 173/84 H 95 03/27/18 08:06 03/27/18 09:02 03/27/18 08:06 03/27/18 09:02 03/27/18 08:06 - Medications Medications: Current Medications Acetaminophen (Tylenol 325mg Tab) 650 mg PO Q4 PRN PRN Reason: Fever >100.4 F Last Admin: 03/23/18 12:16 Dose: 650 mg Acetaminophen (Tylenol 325mg Tab) 650 mg PO Q6 PRN PRN Reason: Pain, Mild (1-3) Enoxaparin Sodium (Lovenox) 50 mg SC DAILY [facility]; Protocol Last Admin: 03/27/18 09:00 Dose: 50 mg Guaifenesin/Dextromethorphan (Mucinex-Dm 600-30 Mg) 2 tab PO BID [facility] Last Admin: 03/27/18 09:03 Dose: 2 tab Sodium Chloride (Sodium Chloride 0.9%) 1,000 mls @ 150 mls/hr IV .Q6H40M [facility] Last Admin: 03/27/18 04:04 Dose: Not Given Ampicillin Sodium/Sulbactam (Sodium 3 gm/ Sodium Chloride) 100 mls @ 100 mls/hr IVPB Q6 [facility]; Protocol Last Admin: 03/27/18 09:09 Dose: 100 mls/hr Vancomycin HCl 1 gm/ Sodium (Chloride) 250 mls @ 166.667 mls/hr IVPB Q8@0100,0900,1700 [facility]; Protocol Last Admin: 03/27/18 10:25 Dose: 166.667 mls/hr Ketorolac Tromethamine (Toradol) 15 mg IVP Q6 PRN PRN Reason: Pain, moderate (4-7) Metoprolol Tartrate (Lopressor) 100 mg PO DAILY [facility] Last Admin: 03/27/18 09:02 Dose: 100 mg Pantoprazole Sodium (Protonix Ec Tab) 40 mg PO BID [facility] Last Admin: 03/27/18 09:02 Dose: 40 mg - Labs Labs: 11/09/18 10:03 03/27/18 10:03 - Constitutional Appears: No Acute Distress - Head Exam Head Exam: ATRAUMATIC, NORMAL INSPECTION, NORMOCEPHALIC - Eye Exam Eye Exam: EOMI, Normal appearance, PERRL Pupil Exam: NORMAL ACCOMODATION, PERRL - ENT Exam ENT Exam: Mucous Membranes Moist, Normal Exam - Neck Exam Neck Exam: Full ROM, Normal Inspection. absent: Lymphadenopathy - Respiratory Exam Respiratory Exam: Clear to Ausculation Bilateral, NORMAL BREATHING PATTERN - Cardiovascular Exam Cardiovascular Exam: REGULAR RHYTHM, +S1, +S2. absent: Murmur - GI/Abdominal Exam GI & Abdominal Exam: Soft, Normal Bowel Sounds. absent: Tenderness - Rectal Exam Rectal Exam: NORMAL INSPECTION - Extremities Exam Extremities Exam: Full ROM, Normal Capillary Refill, Pedal Edema, Tenderness. absent: Joint Swelling Additional comments: REDNESS - Back Exam Back Exam: NORMAL INSPECTION - Neurological Exam Neurological Exam: Alert, Awake, CN II-XII Intact, Normal Gait, Oriented x3 - Psychiatric Exam Psychiatric exam: Normal Affect, Normal Mood - Skin Skin Exam: Dry, Intact, Normal Color, Warm Assessment and Plan - Assessment and Plan (Free Text) Assessment: CELLULITIS OF L LEG--IMPROVING SIRS HYPERGLYCEMIA--IMPROVING OBESITY HYPERTENSION Plan: WILL PROBABLY D/C IN AM ON PO ANTIBIOTICS IF ALL CULTURES ARE NEGATIVE AND CLEARED BY ID
--- NOTE | 2018-03-27 12:31 | PQF ---
PROVIDER RESPONSE TEXT: SEPSIS--ORGANISM UNDETERMINED REVIEWER QUERY TEXT: Rule Out Sepsis Clarification Further documentation has SIRS, Cellulitis/abscess L groin. SIRS + a documented infection. Please clarify if Sepsis is ruled in or ruled out. Please clarify whether: -- Patient has sepsis - Please document confirmed, suspected or probable causative organism - Please document confirmed, suspected or probable localized infection - Please clarify if sepsis is related to a device - Please clarify if sepsis was present on admission -- Sepsis was ruled out (include corresponding diagnosis for patient?s clinical picture and treatment ) -- Patient had sepsis which is resolved -- Other, please specify The patient's Clinical Indicators include: C/O subjective fever, weakness and burning/tightening sensation around left groin with occasional dys uria. WBC 16.2 L shift 4% BANDS, Lactate 2.2, Procalcitonin 1.54, BLOOD CS No growth 24 hours TEMP: 98.6, 102.6, 102.6, 99.3, 99.3, 99.9, 98, 199.4, 100.5 HR: 120, 88, 86, 88, 99, 103 BP:141/97, 120/66, 126/66. 142/81, 140/86 R:19, 20,20 ID consult pending Rx:Vancomycin Query created by: Valentine Moses on 03/26/2018 6:38 AM Electronically signed by: David Teixeira MD 03/27/2018 12:28 PM
--- NOTE | 2018-03-27 12:46 | PQF ---
PROVIDER RESPONSE TEXT: Sepsis ruled in REVIEWER QUERY TEXT: Rule Out Sepsis Clarification Further documentation has SIRS, Cellulitis/abscess L groin. SIRS + a documented infection. Please clarify if Sepsis is ruled in or ruled out. -- Patient has sepsis - Please document confirmed, suspected or probable causative organism - Please document confirmed, suspected or probable localized infection - Please clarify if sepsis is related to a device - Please clarify if sepsis was present on admission -- Sepsis was ruled out (include corresponding diagnosis for patient?s clinical picture and treatment ) -- Patient had sepsis which is resolved -- Other, please specify The patient's Clinical Indicators include: C/O subjective fever, weakness and burning/tightening sensation around left groin with occasional dys uria. WBC 16.2 L shift 4% BANDS, Lactate 2.2, Procalcitonin 1.54, BLOOD CS No growth 24 hours TEMP: 98.6, 102.6, 102.6, 99.3, 99.3, 99.9, 98, 199.4, 100.5 HR: 120, 88, 86, 88, 99, 103 BP:141/97, 120/66, 126/66. 142/81, 140/86 R:19, 20,20 Rx: Vancomycin Query created by: Valentine Moses on 03/27/2018 11:09 AM Electronically signed by: Yonny Weinberg MD 03/27/2018 12:44 PM
--- NOTE | 2018-03-27 14:04 | CP.PCM.PN ---
Subjective - Date & Time of Evaluation Date of Evaluation: 03/27/18 Time of Evaluation: 08:00 - Subjective Subjective: cellulitis less possible d/c on PO zyvox Objective - Vital Signs/Intake and Output Vital Signs (last 24 hours): Temp Pulse Resp BP Pulse Ox 97.8 F 88 19 173/84 H 95 03/27/18 08:06 03/27/18 09:02 03/27/18 08:06 03/27/18 09:02 03/27/18 08:06 - Medications Medications: Current Medications Acetaminophen (Tylenol 325mg Tab) 650 mg PO Q4 PRN PRN Reason: Fever >100.4 F Last Admin: 03/23/18 12:16 Dose: 650 mg Acetaminophen (Tylenol 325mg Tab) 650 mg PO Q6 PRN PRN Reason: Pain, Mild (1-3) Enoxaparin Sodium (Lovenox) 50 mg SC DAILY [facility]; Protocol Last Admin: 03/27/18 09:00 Dose: 50 mg Guaifenesin/Dextromethorphan (Mucinex-Dm 600-30 Mg) 2 tab PO BID [facility] Last Admin: 03/27/18 09:03 Dose: 2 tab Sodium Chloride (Sodium Chloride 0.9%) 1,000 mls @ 150 mls/hr IV .Q6H40M [facility] Last Admin: 03/27/18 12:40 Dose: Not Given Ampicillin Sodium/Sulbactam (Sodium 3 gm/ Sodium Chloride) 100 mls @ 100 mls/hr IVPB Q6 [facility]; Protocol Last Admin: 03/27/18 09:09 Dose: 100 mls/hr Vancomycin HCl 1 gm/ Sodium (Chloride) 250 mls @ 166.667 mls/hr IVPB Q8@0100,0900,1700 [facility]; Protocol Last Admin: 03/27/18 10:25 Dose: 166.667 mls/hr Ketorolac Tromethamine (Toradol) 15 mg IVP Q6 PRN PRN Reason: Pain, moderate (4-7) Metoprolol Tartrate (Lopressor) 100 mg PO DAILY [facility] Last Admin: 03/27/18 09:02 Dose: 100 mg Pantoprazole Sodium (Protonix Ec Tab) 40 mg PO BID [facility] Last Admin: 03/27/18 09:02 Dose: 40 mg - Labs Labs: 03/27/18 10:03 03/27/18 10:03 - Constitutional Appears: Non-toxic, Chronically Ill - Head Exam Head Exam: NORMOCEPHALIC - Eye Exam Eye Exam: absent: Scleral icterus - ENT Exam ENT Exam: Mucous Membranes Dry - Neck Exam Neck Exam: absent: Lymphadenopathy - Respiratory Exam Respiratory Exam: Decreased Breath Sounds - Cardiovascular Exam Cardiovascular Exam: REGULAR RHYTHM - GI/Abdominal Exam GI & Abdominal Exam: Distended, Soft - Rectal Exam Rectal Exam: Deferred - Exam Exam: NORMAL INSPECTION - Extremities Exam Extremities Exam: Pedal Edema, Tenderness. absent: Calf Tenderness, Normal Inspection - Back Exam Back Exam: absent: CVA tenderness (L), CVA tenderness (R) - Neurological Exam Neurological Exam: Alert, Awake, Oriented x3 - Psychiatric Exam Psychiatric exam: Normal Mood - Skin Skin Exam: Dry, Erythema Assessment and Plan (1) Cellulitis and abscess of left leg Status: Acute (2) SIRS (systemic inflammatory response syndrome) Status: Acute - Assessment and Plan (Free Text) Assessment: consider d/c on PO Zyvox 600 bid x 5 days
--- NOTE | 2018-03-27 14:34 | US ---
Date of service: 03/27/2018 PROCEDURE: Bilateral lower extremity venous duplex Doppler. HISTORY: r/o DVT COMPARISON: Left lower extremity duplex Doppler venous ultrasound examination 03/23/2018 TECHNIQUE: Bilateral common femoral, superficial femoral, popliteal and posterior tibial veins were evaluated. Flow was assessed with color Doppler, compressibility, assessment of phasic flow and augmentation response. FINDINGS: COMMON FEMORAL VEIN: Right CFV: Unremarkable. Left CFV: Unremarkable. SUPERFICIAL FEMORAL VEIN: Right SFV: Unremarkable. Left SFV: Unremarkable. POPLITEAL VEIN: Right Popliteal: Unremarkable. Left Popliteal: Unremarkable. POSTERIOR TIBIAL VEIN: Right PTV: Unremarkable. Left PTV: Unremarkable. OTHER FINDINGS: Incidental stable left inguinal lymph node, 3.4 cm greatest dimension. IMPRESSION: No evidence of deep venous thrombosis in the right or left lower extremity.. Isolated left inguinal lymph node identified unchanged from prior examination
[2018-03-28] MEDS: Sodium Chloride 0.9% 1,000 ML IV SCH ×2 (00:29→09:09)
[2018-03-28 08:57] VITALS: BP 162/99; PULSE 81; RESP 19; TEMP 97.9
[2018-03-28] MEDS: guaiFENesin-DM 600-30 mg ER Tab PO SCH (09:07)
[2018-03-28] MEDS: Enoxaparin 60 mg Syringe SC SCH (09:08)
[2018-03-28] MEDS: Pantoprazole 40 mg EC Tab PO SCH (09:08)
--- NOTE | 2018-03-28 10:05 | CP.PCM.DIS ---
Provider - Provider Date of Admission: 03/22/18 22:49 Attending physician: David Teixeira MD Time Spent in preparation of Discharge (in minutes): 30 Diagnosis - Discharge Diagnosis (1) Hypertension Status: Acute (2) Hyperglycemia Status: Acute (3) Obesity Status: Acute (4) Lymphadenopathy Status: Acute (5) Cellulitis and abscess of left leg Status: Acute (6) SIRS (systemic inflammatory response syndrome) Status: Acute Hospital Course - Lab Results Lab Results: Micro Results 03/22/18 17:00 Blood-Venous Blood Culture - Final NO GROWTH AFTER 5 DAYS 03/22/18 17:00 Blood-Venous Gram Stain - Final TEST NOT PERFORMED 03/22/18 17:30 Blood-Venous Blood Culture - Final NO GROWTH AFTER 5 DAYS 03/22/18 17:30 Blood-Venous Gram Stain - Final TEST NOT PERFORMED 03/22/18 21:03 Urine,Clean Catch Urine Culture - Final No Growth (<1,000 CFU/ML) Most Recent Lab Values WBC 7.4 K/uL (4.8-10.8) 03/27/18 10:03 RBC 5.32 Mil/uL (4.40-5.90) 03/27/18 10:03 Hgb 14.5 g/dL (12.0-18.0) 03/27/18 10:03 Hct 45.2 % (35.0-51.0) 03/27/18 10:03 MCV 85.1 fl (80.0-94.0) 03/27/18 10:03 MCH 27.3 pg (27.0-31.0) 03/27/18 10:03 MCHC 32.0 g/dL (33.0-37.0) L 03/27/18 10:03 RDW 14.3 % (11.5-14.5) 03/27/18 10:03 Plt Count 224 K/uL (130-400) 03/27/18 10:03 MPV 8.3 fl (7.2-11.7) 03/25/18 06:00 Neut % (Auto) 66.0 % (50.0-75.0) 03/25/18 06:00 Lymph % (Auto) 19.7 % (20.0-40.0) L 03/25/18 06:00 [place] % (Auto) 11.9 % (0.0-10.0) H 03/25/18 06:00 Eos % (Auto) 1.9 % (0.0-4.0) 03/25/18 06:00 Baso % (Auto) 0.5 % (0.0-2.0) 03/25/18 06:00 Neut # (Auto) 4.2 K/uL (1.8-7.0) 03/25/18 06:00 Lymph # (Auto) 1.3 K/uL (1.0-4.3) 03/25/18 06:00 [place] # (Auto) 0.8 K/uL (0.0-0.8) 03/25/18 06:00 Eos # (Auto) 0.1 K/uL (0.0-0.7) 03/25/18 06:00 Baso # (Auto) 0.0 K/uL (0.0-0.2) 03/25/18 06:00 Neutrophils % (Manual) 87 % (42-75) H 03/22/18 17:14 Band Neutrophils % 4 % (0-2) H 03/22/18 17:14 Lymphocytes % (Manual) 3 % (20-50) L 03/22/18 17:14 Monocytes % (Manual) 6 % (0-10) 03/22/18 17:14 Platelet Estimate Normal (NORMAL) 03/22/18 17:14 Large Platelets Present 03/22/18 17:14 Hypochromasia (manual) Slight 03/22/18 17:14 Acanthocytes (Spur) Moderate 03/22/18 17:14 ESR 32 mm/hr (0-15) H 03/25/18 06:00 pO2 43 mm/Hg (30-55) 03/22/18 20:21 VBG pH 7.43 (7.32-7.43) 03/22/18 20:21 VBG pCO2 45 mmHg (40-60) 03/22/18 20:21 VBG HCO3 28.2 mmol/L 03/22/18 20:21 VBG Total CO2 31.3 mmol/L (22-28) H 03/22/18 20:21 VBG O2 Sat (Calc) 86.1 % (40-65) H 03/22/18 20:21 VBG Base Excess 4.8 mmol/L (0.0-2.0) H 03/22/18 20:21 VBG Potassium 3.7 mmol/L (3.6-5.2) 03/22/18 20:21 Sodium 133.0 mmol/L (132-148) 03/22/18 20:21 Chloride 98.0 mmol/L (98-107) 03/22/18 20:21 Glucose 168 mg/dL (75-110) H 03/22/18 20:21 Lactate 2.1 mmol/L (0.7-2.1) 03/22/18 20:21 FiO2 21.0 % 03/22/18 20:21 Blood Gas Comments Lac=2.1 03/22/18 20:21 Crit Value Called To rayray Haile 03/22/18 20: Crit Value Called By 22 03/22/18 20:21 Crit Value Read Back Y 03/22/18 20: Blood Gas Notified Time 202603/22/18 20:21 Sodium 139 mmol/l (132-148) 03/27/18 10:03 Potassium 3.5 MMOL/L (3.6-5.0) L 03/27/18 10:03 Chloride 103 mmol/L (98-107) 03/27/18 10:03 Carbon Dioxide 28 mmol/L (22-30) 03/27/18 10:03 Anion Gap 12 (10-20) 03/27/18 10:03 BUN 10 mg/dl (9-20) 03/27/18 10:03 Creatinine 0.8 mg/dl (0.8-1.5) 03/27/18 10:03 Est GFR ( Amer) > 60 03/27/18 10:03 Est GFR (Non-Af Amer) > 60 03/27/18 10:03 POC Glucose (mg/dL) 124 mg/dL (65-110) H 03/28/18 05:43 Random Glucose 160 mg/dL (75-110) H 03/27/18 10:03 Hemoglobin A1c 7.8 % (4.2-6.5) H 03/23/18 06:45 Calcium 8.1 mg/dL (8.4-10.2) L 03/27/18 10:03 Total Bilirubin 0.9 mg/dl (0.2-1.3) 03/22/18 17:14 AST 100 U/L (17-59) H 03/22/18 17:14 ALT 167 U/L (21-72) H D 03/22/18 17:14 Alkaline Phosphatase 100 U/L (38-126) 03/22/18 17:14 Total Protein 7.8 G/DL (6.3-8.2) 03/22/18 17:14 Albumin 4.4 g/dL (3.5-5.0) 03/22/18 17:14 Globulin 3.4 gm/dL (2.2-3.9) 03/22/18 17:14 Albumin/Globulin Ratio 1.3 (1.0-2.1) 03/22/18 17:14 Procalcitonin 1.54 NG/ML (0.19-0.49) H 03/23/18 06:45 TSH 3rd Generation 1.62 mIU/ML (0.46-4.68) 03/23/18 06:45 Cortisol AM Sample 15.1 ug/dL (4.46-22.7) 03/23/18 06:45 Venous Blood Potassium 3.7 mmol/L (3.6-5.2) 03/22/18 20:21 Urine Color Yellow (YELLOW) 03/22/18 21:03 Urine Clarity Clear (Clear) 03/22/18 21:03 Urine pH 7.0 (5.0-8.0) 03/22/18 21:03 Ur Specific [place] 1.015 (1.003-1.030) 03/22/18 21:03 Urine Protein Negative mg/dL (NEGATIVE) 03/22/18 21:03 Urine Glucose (UA) 150 mg/dL (Normal) 03/22/18 21:03 Urine Ketones Negative mg/dL (NEGATIVE) 03/22/18 21:03 Urine Blood Negative (NEGATIVE) 03/22/18 21:03 Urine Nitrate Negative (NEGATIVE) 03/22/18 21:03 Urine Bilirubin Negative (NEGATIVE) 03/22/18 21:03 Urine Urobilinogen 0.2-1.0 mg/dL (0.2-1.0) 03/22/18 21:03 Ur Leukocyte Esterase Neg Susan/uL (Negative) 03/22/18 21:03 Urine RBC (Auto) 2 /hpf (0-3) 03/22/18 21:03 Urine Microscopic WBC < 1 /hpf (0-5) 03/22/18 21:03 Vancomycin Trough 12.2 ug/mL (5.0-10.0) H 03/27/18 10:03 Hepatitis A IgM Ab Negative (NEGATIVE) 03/23/18 12:12 Hep Bs Antigen Negative (NEGATIVE) 03/23/18 12:12 Hep B Core IgM Ab Negative (NEGATIVE) 03/23/18 12:12 Hepatitis C Antibody Negative (NEGATIVE) 03/23/18 12:12 HIV 1&2 Antibody Screen Negative (NEGATIVE) 03/23/18 12:12 Influenza Typ A,B (EIA) Negative for flu a/b (NEGATIVE) 03/22/18 19:59 - Hospital Course Hospital Course: cellulitis with pain and edema of l leg improved hypertension still poorly controlled hyperglycemia improved Discharge Exam - Head Exam Head Exam: NORMOCEPHALIC - Eye Exam Eye Exam: EOMI, Normal appearance, PERRL Pupil Exam: NORMAL ACCOMODATION, PERRL - GI/Abdominal Exam GI & Abdominal Exam: Normal Bowel Sounds - Rectal Exam Rectal Exam: NORMAL INSPECTION - Neurological Exam Neurological exam: Alert, CN II-XII Intact, Normal Gait, Oriented x3, Reflexes Normal - Psychiatric Exam Psychiatric exam: Normal Affect, Normal Mood - Skin Skin Exam: Dry, Intact, Normal Color, Warm Discharge Plan - Follow Up Plan Condition: FAIR Disposition: HOME/ ROUTINE Instructions: Acute Abdomen (Belly Pain), Adult (DC), Abscess (GEN) Additional Instructions: follow up with primary MD 1 week Referrals: Yonny Weinberg MD [Staff Provider] - David Teixeira MD [Staff Provider] -
--- NOTE | 2018-03-30 09:17 | PQF ---
PROVIDER RESPONSE TEXT: ELEVATED BMI--47 MORBID OBESITY REVIEWER QUERY TEXT: Documentation Clarification Your help is requested in clarifying the following clinical documentation, if you can please further specify in the medical record and discharge summary. Please document the BMI. When coding Morbid Obesity 2 codes are needed : 1 for the diagnosis and 1 fo r the BMI result. EMR : 5' 7", weight of 300 pounds with a BMI of 47 The patient's Clinical Indicators include: EMR : 5' 7", weight of 300 pounds with a BMI of 47 Query created by: Valentine Moses on 03/23/2018 12:58 PM Electronically signed by: David Teixeira MD 03/30/2018 9:14 AM
== END 2018-03-28 12:49 | disposition home or self-care (01) | DRG 720 ==
LOC: H.ER 16:10 → H.ERHOLD 22:49 → H.MEDSURG1 03-23 12:36 → H.ERHOLD 03-25 09:22 → H.MEDSURG1 03-25 09:25
PROVIDERS: ADMIT Internal Medicine Pulmonary Disease; ATTEND Internal Medicine Pulmonary Disease
DX: A41.9 Sepsis, unspecified organism (principal); Z68.42 Body mass index [BMI] 45.0-49.9, adult; K76.0 Fatty (change of) liver, not elsewhere classified; I10 Essential (primary) hypertension; L02.214 Cutaneous abscess of groin; L03.116 Cellulitis of left lower limb; E66.01 Morbid (severe) obesity due to excess calories; R73.9 Hyperglycemia, unspecified; K42.9 Umbilical hernia without obstruction or gangrene; L02.416 Cutaneous abscess of left lower limb; L03.314 Cellulitis of groin; Z79.1 Long term (current) use of non-steroidal anti-inflammatories (NSAID); Z82.49 Family history of ischemic heart disease and other diseases of the circulatory system; G51.0 Bell's palsy; R73.03 Prediabetes; M54.9 Dorsalgia, unspecified; R59.1 Generalized enlarged lymph nodes; D35.02 Benign neoplasm of left adrenal gland

== ENCOUNTER 2018-08-04 15:40 | Observation (INO) | payer OTHER ==
--- NOTE | 2018-08-04 16:12 | ED PDOC ---
HPI: Hypertension/Hypotension Time Seen by Provider: 08/04/18 16:02 Chief Complaint (Nursing): Dizziness/Lightheaded History Per: Patient Onset/Duration Of Symptoms: Persistent Current Symptoms Are (Timing): Still Present Associated Symptoms: Chest Pain, Headache Severity: Moderate Additional Complaint(s): Reffered by PMD for persistent elevated BP despite adjustment and adding of meds. Pt c/o chest tightness and headache. Denies focal weakness. Past Medical History Vital Signs: Last Vital Signs Temp 97.8 F 08/04/18 15:50 Pulse 69 08/04/18 15:50 Resp 16 08/04/18 15:50 BP 153/101 H 08/04/18 15:50 Pulse Ox 95 08/04/18 15:50 - Medical History PMH: Diabetes, HTN - Family History Family History: States: Unknown Family Hx - Home Medications Home Medications: Ambulatory Orders Medication Instructions Recorded Linezolid [Zyvox] 600 mg PO DAILY #5 tab 03/28/18 Metoprolol Tartrate [Lopressor] 100 mg PO BID #60 03/28/18 Omeprazole 40 mg PO DAILY #30 capsule. 03/28/18 guaiFENesin/Dextromethorphan 2 tab PO BID 30 Days #60 tab 03/28/18 [Mucinex-DM 600-30 mg] - Allergies Allergies/Adverse Reactions: Allergies Allergy/AdvReac Type Severity Reaction Status Date / Time No Known Allergies Allergy Verified 08/04/18 15:49 Review of Systems ROS Statement: Except As Marked, All Systems Reviewed And Found Negative Cardiovascular: Positive for: Chest Pain Neurological: Positive for: Headache Physical Exam - Reviewed Nursing Documentation Reviewed: Yes Vital Signs Reviewed: Yes - Physical Exam Appears: Positive for: Non-toxic, No Acute Distress Head Exam: Positive for: ATRAUMATIC, NORMAL INSPECTION, NORMOCEPHALIC Skin: Positive for: Normal Color, Warm, DRY Eye Exam: Positive for: EOMI, Normal appearance, PERRL ENT: Positive for: Normal ENT Inspection Neck: Positive for: Normal, Painless ROM Cardiovascular/Chest: Positive for: Regular Rate, Rhythm Respiratory: Positive for: CNT, Normal Breath Sounds Gastrointestinal/Abdominal: Positive for: Normal Exam, Soft Back: Positive for: Normal Inspection Extremity: Positive for: Normal ROM Neurological/Psych: Positive for: Awake, Alert, Normal Tone - ECG O2 Sat by Pulse Oximetry: 95 Disposition - Clinical Impression Clinical Impression: Hypertension, Chest pain - Patient ED Disposition Is Patient to be Admitted: Yes - Disposition Disposition Time: 16:12 Condition: FAIR Forms: [facility] ([place]) - Pt Status Changed To: Hospital Disposition Of: Observation - POA Present On Arrival: None
[2018-08-04 16:36] LABS: BASO % 0.4 % (0.0-2.0); EOS # 0.1 K/uL (0.0-0.7); EOS % 0.7 % (0.0-4.0); HEMOGLOBIN 15.6 g/dL (12.0-18.0); LYMPH # 1.9 K/uL (1.0-4.3); LYMPH % 22.6 % (20.0-40.0); MEAN CELL VOLUME 83.4 fl (80.0-94.0); MEAN CORPUSCULAR HEMOGLOBIN 26.9 pg (27.0-31.0); MEAN CORPUSCULAR HGB CONC 32.2 g/dL (33.0-37.0); MEAN PLATELET VOLUME 8.2 fl (7.2-11.7); MONO # 0.8 K/uL (0.0-0.8); MONO % 9.6 % (0.0-10.0); NEUT # 5.5 K/uL (1.8-7.0); NEUT % 66.7 % (50.0-75.0); RBC 5.81 Mil/uL (4.40-5.90); RED CELL DISTRIBUTION WIDTH 14.1 % (11.5-14.5); WHITE BLOOD COUNT 8.3 K/uL (4.8-10.8)
--- NOTE | 2018-08-04 16:38 | RAD ---
HISTORY: HTN COMPARISON: Chest x-ray performed 03/22/18 TECHNIQUE: Chest PA and lateral FINDINGS: Examination limited by habitus. LUNGS: No focal consolidation. Please note that chest x-ray has limited sensitivity for the detection of pulmonary masses. PLEURA: No significant pleural effusion identified. No definite pneumothorax . CARDIOVASCULAR: Heart size appears within normal limits. Ectatic aorta. OSSEOUS STRUCTURES: Degenerative changes. VISUALIZED UPPER ABDOMEN: Unremarkable. OTHER FINDINGS: None. IMPRESSION: No focal consolidation.
[2018-08-04 16:48] LABS: ALB/GLOB RATIO 1.4 (1.0-2.1); ALBUMIN 4.3 g/dL (3.5-5.0); ALT/SGPT 66 U/L (21-72); AST/SGOT 45 U/L (17-59); BLOOD UREA NITROGEN 15 mg/dl (9-20); CALCIUM 8.9 mg/dL (8.4-10.2); GFR NON-AFRICAN AMERICAN > 60
[2018-08-05 00:59] VITALS: BMI 45.3
[2018-08-05] MEDS ORDERED: Influenza Vaccine 60 mcg/0.5 mL SYR (4YR UP) IM ONE (06:00)
[2018-08-05 08:32] VITALS: RESP 20
--- NOTE | 2018-08-05 08:55 | CARD ---
APPROVED REPORT Date of service: 08/05/2018 EKG Measurement Heart [id number] MD [id number] <Conclusion> Normal sinus rhythm Normal ECG
[2018-08-05] MEDS ORDERED: Enoxaparin 80 mg Syringe SC SCH (09:00)
[2018-08-05] MEDS ORDERED: Enoxaparin 40 mg Syringe SC SCH (09:00)
[2018-08-05] MEDS ORDERED: Pantoprazole 40 mg EC Tab PO SCH (09:00)
--- NOTE | 2018-08-05 09:02 | CARD ---
APPROVED REPORT Date of service: 08/04/2018 EKG Measurement Heart [id number] CT [id number] <Conclusion> Normal sinus rhythm Normal ECG
--- NOTE | 2018-08-05 09:42 | CP.PCM.HP ---
History of Present Illness - History of Present Illness History of Present Illness: 47 YR OLD MALE ADMITTED BECAUSE OF UNCONTROLLED DIABETES,HYPERTENSION AND CHEST PAINS.THE PATIENT HAS BEEN ON MULTIPLE MEDS AT HOME AND INDICATES THAT BP AND DIABETES HAVE STILL BEEN UNCONTROLLED AND NOW HE HAS HEADACHES AND DIZZINESS.HE STES THAT HE HAS BEEN COMPLIANT TO DIET/EXERCISE AND MEDS. FAMILY HX OF HTN AND GRANULOMATOUS LIVER DZ IN MOTHER Present on Admission - Present on Admission Any Indicators Present on Admission: No Past Patient History - Infectious Disease Hx of Infectious Diseases: None - Past Medical History & Family History Past Medical History?: Yes - Past Social History Smoking Status: Never Smoked - CARDIAC Hx Cardiac Disorders: Yes Hx Hypertension: Yes - PULMONARY Hx Respiratory Disorders: No - NEUROLOGICAL Hx Neurological Disorder: No - HEENT Hx HEENT Problems: No - RENAL Hx Chronic Kidney Disease: No - ENDOCRINE/METABOLIC Hx Endocrine Disorders: Yes Hx Diabetes Mellitus Type 2: Yes - HEMATOLOGICAL/ONCOLOGICAL Hx Blood Disorders: No (denies) - INTEGUMENTARY Hx Dermatological Problems: No - MUSCULOSKELETAL/RHEUMATOLOGICAL Hx Musculoskeletal Disorders: No Hx Falls: No - GASTROINTESTINAL Hx Gastrointestinal Disorders: No - GENITOURINARY/GYNECOLOGICAL Hx Genitourinary Disorders: No (denies) - PSYCHIATRIC Hx Psychophysiologic Disorder: No (denies) Hx Substance Use: No - SURGICAL HISTORY Hx Surgeries: No - ANESTHESIA Hx Anesthesia: Yes Hx Anesthesia Reactions: No Hx Malignant Hyperthermia: No Has any member of the family had a problem w/ anesthesia?: No Meds Allergies/Adverse Reactions: Allergies Allergy/AdvReac Type Severity Reaction Status Date / Time No Known Allergies Allergy Verified 08/04/18 15:49 Physical Exam - Constitutional Appears: Well Additional comments: OBESE - Head Exam Head Exam: ATRAUMATIC, NORMAL INSPECTION, NORMOCEPHALIC - Eye Exam Eye Exam: EOMI, Normal appearance, PERRL Pupil Exam: NORMAL ACCOMODATION, PERRL - ENT Exam ENT Exam: Mucous Membranes Moist, Normal Exam - Neck Exam Neck exam: Positive for: Normal Inspection - Respiratory Exam Respiratory Exam: Clear to Auscultation Bilateral, NORMAL BREATHING PATTERN - Cardiovascular Exam Cardiovascular Exam: REGULAR RHYTHM - GI/Abdominal Exam GI & Abdominal Exam: Normal Bowel Sounds, Soft. absent: Tenderness - Rectal Exam Rectal Exam: NORMAL INSPECTION - Extremities Exam Extremities exam: Positive for: normal inspection - Back Exam Back exam: NORMAL INSPECTION - Neurological Exam Neurological exam: Alert, CN II-XII Intact, Normal Gait, Oriented x3, Reflexes Normal - Psychiatric Exam Psychiatric exam: Normal Affect, Normal Mood - Skin Skin Exam: Dry, Intact, Normal Color, Warm Results - Vital Signs Recent Vital Signs: Last Vital Signs Temp 97.6 F 08/05/18 08:31 Pulse 72 08/05/18 08:55 Resp 20 08/05/18 08:31 BP 134/79 08/05/18 08:55 Pulse Ox 93 L 08/05/18 08:31 - Labs Result Diagrams: 08/04/18 16:29 08/04/18 16:29 Labs: Laboratory Results - last 24 hr 08/04/18 08/04/18 08/04/18 15:53 16:29 16:29 WBC 8.3 RBC 5.81 Hgb 15.6 Hct 48.5 MCV 83.4 MCH 26.9 L MCHC 32.2 L RDW 14.1 Plt Count 246 MPV 8.2 Neut % (Auto) 66.7 Lymph % (Auto) 22.6 [place] % (Auto) 9.6 Eos % (Auto) 0.7 Baso % (Auto) 0.4 Neut # (Auto) 5.5 Lymph # (Auto) 1.9 [place] # (Auto) 0.8 Eos # (Auto) 0.1 Baso # (Auto) 0.0 Sodium 139 Potassium 4.1 Chloride 97 L Carbon Dioxide 27 Anion Gap 19 BUN 15 Creatinine 1.1 Est GFR ( Amer) > 60 Est GFR (Non-Af Amer) > 60 POC Glucose (mg/dL) 97 Random Glucose 98 Calcium 8.9 Total Bilirubin 1.1 AST 45 ALT 66 Alkaline Phosphatase 89 Troponin I < 0.0120 Total Protein 7.5 Albumin 4.3 Globulin 3.2 Albumin/Globulin Ratio 1.4 08/04/18 08/04/18 08/05/18 17:18 21:56 00:20 WBC RBC Hgb Hct MCV MCH MCHC RDW Plt Count MPV Neut % (Auto) Lymph % (Auto) [place] % (Auto) Eos % (Auto) Baso % (Auto) Neut # (Auto) Lymph # (Auto) [place] # (Auto) Eos # (Auto) Baso # (Auto) Sodium Potassium Chloride Carbon Dioxide Anion Gap BUN Creatinine Est GFR ( Amer) Est GFR (Non-Af Amer) POC Glucose (mg/dL) 90 94 Random Glucose Calcium Total Bilirubin AST ALT Alkaline Phosphatase Troponin I < 0.0120 Total Protein Albumin Globulin Albumin/Globulin Ratio 08/05/18 05:45 WBC RBC Hgb Hct MCV MCH MCHC RDW Plt Count MPV Neut % (Auto) Lymph % (Auto) [place] % (Auto) Eos % (Auto) Baso % (Auto) Neut # (Auto) Lymph # (Auto) [place] # (Auto) Eos # (Auto) Baso # (Auto) Sodium Potassium Chloride Carbon Dioxide Anion Gap BUN Creatinine Est GFR ( Amer) Est GFR (Non-Af Amer) POC Glucose (mg/dL) 107 Random Glucose Calcium Total Bilirubin AST ALT Alkaline Phosphatase Troponin I Total Protein Albumin Globulin Albumin/Globulin Ratio Assessment & Plan - Assessment and Plan (Free Text) Assessment: CHEST PAIN UNCONTROLLED HTN UNCONTROLLED DM OBESITY Plan: ADJUST MEDS APPROPRIATELY CARDIOLOGY EVAL ADVISE COMPLIANCE D/C HOME TODAY IF STABLE - Date & Time Date: 08/05/18 Time: 09:44
[2018-08-05] MEDS: Insulin Lispro (humaLOG) 100 Units/ml Inj SC SCH ×2 (11:02→13:26)
[2018-08-05 12:28] VITALS: BP 152/71; PULSE 57; TEMP 98.2; O2SAT 94
--- NOTE | 2018-08-05 14:18 | CP.PCM.PCO ---
Assessment and Plan - Assessment and Plan (Free Text) Assessment: pt. doing well this morning, denies h/a , cp, sob VSS; BS controlled Troponin neg pt.cleared for d/c to home today; d/w who will f/u outpatient cont. current meds f/u with and outpatient
== END 2018-08-05 16:30 | disposition home or self-care (01) ==
LOC: H.ER 15:40 → H.ERHOLD 16:13 → H.TEL 21:33
PROVIDERS: ADMIT Internal Medicine Pulmonary Disease; ATTEND Internal Medicine Pulmonary Disease
DX: R07.89 Other chest pain (principal); I10 Essential (primary) hypertension; E66.9 Obesity, unspecified; E11.65 Type 2 diabetes mellitus with hyperglycemia; Z68.42 Body mass index [BMI] 45.0-49.9, adult; Z23 Encounter for immunization
CPT/HCPCS: 36415; 71046; 80053; 82948; 84484; 85025; 90471; 90674; 93005; 99285; G0008; G0378; J1650